=== PATIENT | female | born 1955 | race Caucasian/White ===

== ENCOUNTER 2023-12-27 19:32 | Inpatient (IN) | payer OTHER, SELFPAY ==
[2023-12-27 15:59] VITALS: BMI 36.3
[2023-12-27 16:06] VITALS: BP 133/106
[2023-12-27 16:49] LABS: % Basophils 0.6 % (0-2); % Eosinophils 0.1 % (0-6); % Immature Granulocytes 0.7 % (0-0.5); % Lymphocytes 3.6 % (20.5-51.1); % Monocytes 5.9 % (1.7-9.3); % Neutrophils 89.1 % (42.2-75.2); Absolute Basophils 0.1 10^3/uL (0-0.2); Absolute Immature Granulocytes 0.1 10^3/uL (0-0.05); Absolute Lymphocytes 0.7 10^3/uL (1.2-3.4); Absolute Monocytes 1.1 10^3/uL (0.1-0.6); Absolute Neutrophils 16.2 10^3/uL (1.4-6.5); Hemoglobin 14.7 g/dL (12.0-16.0); Mean Corpuscular Hgb 27.3 pg (27.0-31.0); Mean Corpuscular Volume 85.5 fL (81.0-99.0); Mean Platelet Volume 10.3 fL (7.4-10.4); Nucleated Red Blood Cells % 0 %; Platelet Count 252 10^3/uL (130-400); Red Blood Cell Count 5.38 10^6/uL (4.20-5.40); Red Cell Dist. Width 13.3 % (11.5-14.5); White Blood Cell Count 18.2 10^3/uL (4.8-10.8)
[2023-12-27 16:57] LABS: INR 1.16; PT 14.7 Sec (11.4-14.6)
[2023-12-27 17:00] VITALS: BP 132/63
[2023-12-27 17:00] LABS: ALT (SGPT) 15 U/L (0-35); AST (SGOT) 23 U/L (14-36); Albumin 4.2 g/dl (3.5-5.0); Alkaline Phosphatase 91 U/L (38-126); Blood Urea Nitrogen 13 mg/dl (7-17); Calcium 10.2 mg/dl (8.4-10.2); Carbon Dioxide 31 mmol/L (22-30); Chloride 93 mmol/L (98-107); Estimated Creatinine Clearance 81 ml/min; Glucose 185 mg/dl (70-99); Sodium 138 mmol/L (135-145); Total Bilirubin 0.9 mg/dl (0.2-1.3); Total Protein 7.4 g/dl (6.3-8.2); eGFR > 60.00
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
[2023-12-27] MEDS: DILAUDID 0.5 MG IV ×2 (17:53→21:42)
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
[2023-12-27 18:21] LABS: Creatine Phosphokinase 62 U/L (30-135)
--- NOTE | 2023-12-27 19:03 | HPS.HSE ---
Family Physician
-
Family Physician: Filippo Linares
Chief Complaint
-
Fall and left hip pain
History of Present Illness
This is a 68-year-old female with past medical history significant for schizoaffective disorder, hypertension, diabetes, obesity, bipolar disorder who presents to the emergency department after a fall at home.
Patient reported that she was walking into her kitchen and tripped over her socks falling to the floor on the left side. She had difficulty getting up. She denied loss of consciousness. She denied any palpitations lightheadedness or dizziness.
Brought into the emergency department by ambulance. The intact can correct fracture of the left femur. Patient denies any prior hip surgeries. She denies any prior hip fracture. She lives with child and his significant.
In ED she was hemodynamically stable, afebrile and in no acute distress. Placed on oxygen due to initial sat of 91%. WBC 85394. Hgb and plt WNL. Chemistries WNL. Hip xray with the closed intertrochanteric fracture.
Medical History
Past Medical History
Past Medical History: Reports Hypercholesterolemia, NIDDM and Psychiatric (bipolar, schizoaffective disorder)
Past Surgical History: Reports None
Social History
Tobacco: Smoker
Alcohol: None
Drug: None
Personal: Single
Living: With Family
Employment: Disabled
Family History
Family History: Not pertinent
Allergies / Home Medications
Allergies reflects when Allergies were last updated in [employer].
Home Medications with original date entered in [employer]
Allergy/Medication List:
Allergies
Allergy/AdvReac Type Severity Reaction Status Date / Time
amitriptyline Allergy Unknown Verified 12/27/23 16:06
Anticholinergics Allergy Unknown Verified 12/27/23 16:06
*RETIRED-12/29/12
bee venom protein (honey bee) Allergy Swelling Verified 12/27/23 16:06
penicillin G Allergy Unknown Verified 12/27/23 16:06
Penicillins Allergy rash as a Verified 12/27/23 16:06
child
scopolamine Allergy Unknown Verified 12/27/23 16:06
sertraline Allergy Unknown Verified 12/27/23 16:06
Sulfa (Sulfonamide Allergy Unknown Verified 12/27/23 16:06
Antibiotics)
sulfamethoxazole Allergy Unknown Verified 12/27/23 16:06
Tricyclic Antidepressants Allergy ELEVATED BP Verified 12/27/23 16:06
and Tricy
trimethoprim Allergy Unknown Verified 12/27/23 16:06
venom-honey bee Allergy BEE STINGS Verified 12/27/23 16:06
Home Medications
gabapentin 100 mg capsule 200 mg PO DAILY Neurological Condition 09/01/20
rosuvastatin 10 mg tablet 10 mg PO HS High cholesterol 09/01/20
trazodone 100 mg tablet 100 mg PO HS Depression 09/01/20
ziprasidone HCl 60 mg capsule 120 mg PO QPM Mental Health/Anxiety 09/01/20
metoprolol tartrate 25 mg tablet 25 mg PO DAILY Blood pressure 04/30/22
clonazepam 1 mg tablet (Klonopin) 1 mg PO TID@0800,1300,1800 Mental Health/Anxiety 05/04/22
glipizide 5 mg tablet 5 mg PO DAILY Diabetes #30 tabs 05/06/22
metformin 1,000 mg tablet 1,000 mg PO BID@0800,1700 Diabetes #60 tabs 05/06/22
nicotine 21 mg/24 hr daily transdermal patch 1 patch transdermal Q24H Smoking Cessation 04/01/23
magnesium oxide 400 mg PO DAILY Supplement 06/10/23
polyethylene glycol 3350 17 gram oral powder packet (HealthyLax) 17 g PO DAILY #14 ea 06/12/23
venlafaxine 37.5 mg capsule,extended release 24 hr (Effexor XR) 37.5 mg PO DAILY #30 caps 06/12/23
Review of Systems
-
History Source: Patient
Constitutional: Reports No Symptoms
EENT: Reports No Symptoms
Respiratory: Reports No Symptoms
Cardiac: Reports No Symptoms
Abdomen/GI: Reports No Symptoms
: Reports No Symptoms
Musculoskeletal: Reports Joint Pain
Skin: Reports No Symptoms
Neurological: Reports No Symptoms
Endocrine: Reports No Symptoms
Hematologic/Lymphatic: Reports No Symptoms
Psych: Reports No Symptoms
Physical Exam
Vital Signs
Vital Signs
Temp Pulse Resp BP Pulse Ox
98.2 F 111 15 132/63 91
12/27/23 16:06 12/27/23 17:15 12/27/23 16:30 12/27/23 17:00 12/27/23 17:15
Physical Exam
General: Comfortable
HEENT: NormoCephalic, Anicteric, Moist mucous membranes, Atraumatic and PERRLA
Respiratory: Clear
Cardiac: S1/S2 and Regular Rhythm
Breast: Deferred by me
GI: Non Tender and Normal Bowel Sounds
Rectal: Deferred by Provider
Genito-urinary: Deferred by me
Musculoskeletal: No Clubbing, No Cyanosis and No Edema
Skin: Warm and Dry
Neuro: AO x 3
Hematologic/Lymphatic: No Lymphadenopathy
Psych: Calm
Laboratory Results
-
12/27/23 16:21
12/27/23 16:21
Laboratory Results
PT 14.7 Sec (11.4-14.6) H 12/27/23 16:21
INR 1.16 12/27/23 16:21
APTT 31.0 Sec (23.4-35.0) 12/27/23 16:21
Total Bilirubin 0.9 mg/dl (0.2-1.3) 12/27/23 16:21
AST 23 U/L (14-36) 12/27/23 16:21
ALT 15 U/L (0-35) 12/27/23 16:21
Alkaline Phosphatase 91 U/L (38-126) 12/27/23 16:21
Data Reviewed
-
Diagnostic Radiology: Report Reviewed by me
Lab Data: Labs Reviewed by me
Old Records: Reviewed
Impression/Plan
-
IMPRESSION:
PLAN:
1. Left Hip Fracture - Mechanical fall with left hip closed intertrochanteric femur fracture
- admit to med/surg
- immobilize tonight
- pain control, incentive spirometry
- ivf w/ /2 ns
- orthopedic consulted and notified
- npo after midnight
- pt eval
- type and screen and coags in am
2. DM II -
- hold glipizide as pt npo in am
- continue metformin 1000
- sliding scale insulin for now
3. HTN/HLD -
- continue metoprolol
- continue statin
4. BIPOLAR - stable
- continue psychotropics
DVT PPX with lovenos xq
Full Code
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
[2023-12-27 19:28] VITALS: BP 152/78
[2023-12-27 19:45] LABS: Urine Albumin Trace (Neg - Trace); Urine Bilirubin 1+ (Negative); Urine Character Clear (Clear); Urine Color Amber; Urine Glucose Trace (Negative); Urine Ketone 3+ (Negative); Urine Leukocyte Negative (Negative); Urine Nitrite Negative (Negative); Urine Occult Blood Trace (Negative); Urine Specific Gravity 1.025 (<1.030); Urine Urobilinogen 1+ (Neg - 1+)
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
[2023-12-27 20:02] LABS: Creatine Phosphokinase 84 U/L (30-135)
[2023-12-27 20:04] LABS: Urine Mucus Moderate
[2023-12-27 20:05] LABS: Urine White Cell Cast 0-2 /LPF
[2023-12-27 20:06] LABS: Urine Bacteria Few (Negative); Urine Red Blood Cell 0-2 /HPF (0-2)
[2023-12-27 20:11] LABS: COVID-19 Antigen Negative (Negative)
[2023-12-27 20:36] VITALS: BP 149/91; BMI 35.1
[2023-12-27] MEDS: SENOKOT 17.1999999999999993 MG PO (21:00)
[2023-12-27] MEDS: TYLENOL 650 MG PO (21:00)
[2023-12-27] MEDS: COLACE 100 MG PO (21:00)
[2023-12-27] MEDS: CRESTOR 10 MG PO (21:41)
[2023-12-27] MEDS: DESYREL 100 MG PO (21:41)
[2023-12-27 23:00] VITALS: BP 109/67
[2023-12-27] MEDS: LOPRESSOR 25 MG PO (23:21)
[2023-12-27] MEDS: HEPARIN 5000 UNITS SC (23:24)
[2023-12-27 23:33] LABS: Glucose - Point of Care 200 mg/dl (70-99)
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
[2023-12-28] VITALS (11 sets, daily range): BP systolic 83–119; BP diastolic 48–75
[2023-12-28] MEDS: TYLENOL PO ×3 (01:00→16:27)
[2023-12-28] MEDS: NOVOLOG FLEXPEN-LOW RESISTANCE 2 UNITS SC (01:00)
[2023-12-28] MEDS: TYLENOL 650 MG PO ×3 (04:37→19:37)
[2023-12-28] MEDS: NOVOLOG FLEXPEN-LOW RESISTANCE 1 UNITS SC (05:25)
[2023-12-28 05:26] LABS: Glucose - Point of Care 150 mg/dl (70-99)
[2023-12-28] MEDS: NSS 1000 IV ×2 (06:15→17:11)
--- NOTE | 2023-12-28 08:52 | W.PN.UPDATE ---
Update Note
Progress Note Update
Patient resting comfortably. DND. Patient for open treatment of LEFT hip fracture a bit later today via Dr. Lacey or Dr. Low. Surgical and blood consents have been signed and are at the OR desk. Patient to remain NPO. Hgb at 14.7. T&S has been
requested. IV ABX garbage person.
[2023-12-28] MEDS: HEPARIN 5000 UNITS SC (09:20)
[2023-12-28] MEDS: LOPRESSOR 25 MG PO (09:21)
[2023-12-28] MEDS: SENOKOT 17.1999999999999993 MG PO ×2 (09:21→19:36)
[2023-12-28] MEDS: NEURONTIN 200 MG PO (09:21)
[2023-12-28] MEDS: COLACE 100 MG PO ×2 (09:21→19:37)
[2023-12-28] MEDS: EFFEXOR XR PO ×2 (09:22→09:29)
[2023-12-28] MEDS: KLONOPIN 0.5 MG PO ×2 (09:22→18:41)
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
[2023-12-28] MEDS: DILAUDID 0.5 MG IV ×2 (10:46→19:47)
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
[2023-12-28 12:24] LABS: Glucose - Point of Care 124 mg/dl (70-99)
[2023-12-28] MEDS: NOVOLOG FLEXPEN-LOW RESISTANCE SC ×2 (12:29→19:15)
[2023-12-28] MEDS: KLONOPIN PO (12:30)
[2023-12-28] MEDS: NICODERM TRANSDERMAL TRANSDERM (12:30)
[2023-12-28] MEDS: HEPARIN SC (16:27)
[2023-12-28 16:54] LABS: Glucose - Point of Care 109 mg/dl (70-99)
[2023-12-28] MEDS: ASPIRIN 325 MG PO (18:40)
[2023-12-28] MEDS: GEODON 120 MG PO (18:41)
[2023-12-28] MEDS: ANCEF 5 IV (19:37)
[2023-12-28 21:32] LABS: Glucose - Point of Care 262 mg/dl (70-99)
[2023-12-28] MEDS: DESYREL 100 MG PO (21:37)
[2023-12-28] MEDS: NOVOLOG FLEXPEN-LOW RESISTANCE 3 UNITS SC (21:38)
[2023-12-28] MEDS: CRESTOR 10 MG PO (21:38)
[2023-12-29] VITALS (7 sets, daily range): BP systolic 95–125; BP diastolic 51–69; PULSE 75; O2SAT 97
[2023-12-29] MEDS: HEPARIN 5000 UNITS SC ×4 (00:05→23:07)
[2023-12-29] MEDS: TYLENOL PO ×3 (00:06→05:00)
[2023-12-29] MEDS: NSS IV ×2 (01:56→05:38)
[2023-12-29] MEDS: ANCEF 5 IV (03:10)
[2023-12-29 05:04] LABS: Glucose - Point of Care 220 mg/dl (70-99)
[2023-12-29] MEDS: NOVOLOG FLEXPEN-LOW RESISTANCE 2 UNITS SC ×2 (05:23→23:04)
[2023-12-29 05:29] LABS: Hematocrit 33.6 % (37.0-47.0)
--- NOTE | 2023-12-29 07:39 | W.PN.ORTHO ---
Today's Communication / Plan
-
68-year-old female status post left intertrochanteric femur fracture cephalomedullary nail fixation with Dr. Low postoperative day 1
-Weightbearing as tolerated to left lower extremity with assist devices as indicated
-PT/OT/DC planning
-Pain controlled on current regimen
-ASA 325 mg x 30 days for DVT prophylaxis unless recommended otherwise per primary
-Diet per primary
-Orthopedic surgery will continue to follow
Assessment
.
Distal Motor Intact: Yes
Dressing:
Clean, dry and intact.
Plan
.
Surgery / Date: 12/28/2023
DVT Prophylaxis: Aspirin
Activity:
Out of bed.
PT/OT
Subjective
.
.:
Patient resting comfortably.
Vital Signs and Labs
.
Vital Signs and Labs:
Lab Results
12/29/23 04:53
12/27/23 16:21
Temp Pulse Resp BP Pulse Ox
97.8 F 74 18 108/53 97
12/29/23 07:00 12/29/23 07:00 12/29/23 07:00 12/29/23 07:00 12/29/23 07:00
PT 14.7 Sec (11.4-14.6) H 12/27/23 16:21
INR 1.16 12/27/23 16:21
Physical Exam
-
Examination the left lower extremity shows dressings are intact without any surrounding erythema. Minimal strikethrough the bandage. Neurovascularly intact L3-S1
[2023-12-29] MEDS: SENOKOT 17.1999999999999993 MG PO ×2 (08:52→20:43)
[2023-12-29] MEDS: NEURONTIN 200 MG PO (08:52)
[2023-12-29] MEDS: COLACE 100 MG PO ×2 (08:57→20:43)
[2023-12-29] MEDS: ASPIRIN 325 MG PO (08:57)
[2023-12-29] MEDS: KLONOPIN 0.5 MG PO ×3 (08:57→17:14)
[2023-12-29] MEDS: TYLENOL 650 MG PO ×5 (08:57→23:04)
[2023-12-29] MEDS: LOPRESSOR 25 MG PO (08:57)
[2023-12-29] MEDS: EFFEXOR XR PO (08:58)
[2023-12-29] MEDS: NICODERM TRANSDERMAL 21 MG TRANSDERM (08:58)
[2023-12-29] MEDS: ROXICODONE 5 MG PO ×3 (09:01→23:49)
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
--- NOTE | 2023-12-29 11:32 | PN.CDI ---
Addendum entered and electronically signed by Derek Dixon MD 12/29/23 11:50:
Multifactorial, due to fall and osteoporosis
Original Note:
CDI
- -
CDI:
Physician Documentation Request
Admit Date: 12/27/23 19:32
Dear Doctor Zack,
Clinical Indicators:
Patient admitted with fracture of left femur; s/p Left hip long gamma nail with distal interlocking 12/27.
12/26 H & P, 'Fall in Kitchen at home Tripped on the sock and fell on her Lt hip'
12/26 Ortho consult, 'Left Proximal femur fracture, pathologic secondary to osteoporosis.'
12/26 PN, 'Acute closed intertrochanteric fracture of left femur: S/P mechanical fall'
Due to potentially conflicting documentation, please clarify the likely etiology of the left femur fracture:
Multifactorial, due to fall and osteoporosis
Due to fall only
Other
Use of terms such as suspected, likely, concern for, or probable (associated with a specific diagnosis that is being evaluated, monitored, or treated as if it exists) are acceptable and can be coded in the inpatient setting, when documented at the
time of discharge.
Thank you,
YE Ramos RN
CDI Specialist
available via tiger text
Please use your independent medical judgment in providing your response.
[2023-12-29 13:17] LABS: Glucose - Point of Care 160 mg/dl (70-99)
[2023-12-29] MEDS: NOVOLOG FLEXPEN-LOW RESISTANCE 1 UNITS SC ×2 (14:13→17:18)
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
[2023-12-29 17:09] LABS: Glucose - Point of Care 182 mg/dl (70-99)
[2023-12-29] MEDS: GEODON 120 MG PO (17:14)
[2023-12-29] MEDS: CRESTOR 10 MG PO (21:02)
[2023-12-29] MEDS: DESYREL 100 MG PO (21:02)
[2023-12-29 23:01] LABS: Glucose - Point of Care 211 mg/dl (70-99)
[2023-12-30] VITALS (7 sets, daily range): BP systolic 86–123; BP diastolic 54–71; PULSE 76; O2SAT 95
[2023-12-30] MEDS: TYLENOL 650 MG PO ×5 (04:10→23:57)
--- NOTE | 2023-12-30 05:23 | DOWNTIME ---
There was a [employer] Client Detail Manager Downtime on 12/30/2023 from 0100 to 12/30/2023 at 0439. Downtime documentation of patient's care, including medication administrations, has been reconciled in the electronic record per guidelines. Refer to the
patient's paper chart under the miscellaneous tab to see printed paper medication records and downtime forms.
[2023-12-30 05:40] LABS: Hematocrit 28.6 % (37.0-47.0); Hemoglobin 9.4 g/dL (12.0-16.0); Mean Corp Hgb Conc. 32.9 g/dL (33.0-37.0); Mean Corpuscular Hgb 27.4 pg (27.0-31.0); Mean Corpuscular Volume 83.4 fL (81.0-99.0); Mean Platelet Volume 10.3 fL (7.4-10.4); Platelet Count 233 10^3/uL (130-400); Red Blood Cell Count 3.43 10^6/uL (4.20-5.40); White Blood Cell Count 9.6 10^3/uL (4.8-10.8)
[2023-12-30 06:08] LABS: Blood Urea Nitrogen 13 mg/dl (7-17); Calcium 8.9 mg/dl (8.4-10.2); Carbon Dioxide 37 mmol/L (22-30); Chloride 97 mmol/L (98-107); Estimated Creatinine Clearance 90 ml/min; Glucose 98 mg/dl (70-99); Potassium 3.1 mmol/L (3.5-5.1); Sodium 135 mmol/L (135-145); eGFR > 60.00
--- NOTE | 2023-12-30 07:34 | W.PN.UPDATE ---
Update Note
Progress Note Update
Ms. Carlson is postop day 2 following her left cephalomedullary nail performed by Dr. Low. She is resting comfortably in bed this morning. She does endorse aching pain about the hip, but has noticed improvement in her symptoms overnight.
Directed exam of the left lower extremity reveals Aquacel dressings clean, dry and intact. No significant tenderness palpation of the hip. Thigh soft and compressible. Calf soft and nontender. Patient able to wiggle toes, plantar and dorsiflex
ankle. Neurovascular intact distally.
Hgb 9.4 this a.m.
68-year-old female POD2 left intertrochanteric femur fracture cephalomedullary nail fixation with Dr. Low
-- Continue weightbearing as tolerated to left lower extremity with assist devices as indicated. We appreciate the assistance of PT/OT while patient admitted.
--Recommend ASA 325 mg daily x4 weeks for DVT ppx.
--Continue pain control per primary.
--Hgb 9.4 this AM. Continue to follow.
--Case management consult for d/c planning. SNF will likely be best option for patient.
--Patient stable post-operatively from an orthopedic standpoint. Orthopedics will sign off for now. Please reach out with any additional orthopedic questions or concerns.
[2023-12-30 08:23] LABS: Glucose - Point of Care 103 mg/dl (70-99)
[2023-12-30] MEDS: HEPARIN SC (08:33)
[2023-12-30] MEDS: NOVOLOG FLEXPEN-LOW RESISTANCE SC ×3 (08:34→17:19)
[2023-12-30] MEDS: COLACE 100 MG PO ×2 (09:08→19:44)
[2023-12-30] MEDS: NICODERM TRANSDERMAL 21 MG TRANSDERM (09:08)
[2023-12-30] MEDS: SENOKOT 17.1999999999999993 MG PO (09:08)
[2023-12-30] MEDS: LOPRESSOR 25 MG PO (09:09)
[2023-12-30] MEDS: EFFEXOR XR 37.5 MG PO (09:09)
[2023-12-30] MEDS: KLONOPIN 0.5 MG PO ×3 (09:09→17:19)
[2023-12-30] MEDS: NEURONTIN 200 MG PO (09:10)
[2023-12-30] MEDS: ASPIRIN 325 MG PO (09:10)
[2023-12-30] MEDS: MILK OF MAGNESIA 30 ML PO (09:26)
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
[2023-12-30] MEDS: KCL 40 MEQ PO (11:41)
[2023-12-30] MEDS: ROXICODONE 10 MG PO ×2 (11:41→18:41)
[2023-12-30 12:47] LABS: Glucose - Point of Care 133 mg/dl (70-99)
[2023-12-30] MEDS: TYLENOL PO (12:47)
--- NOTE | 2023-12-30 15:06 | CM ---
Addendum entered by Daphnie Young 12/31/23 07:46:
patient has been accepted at [facility].however, timmy called to say no bed available 12/30 but [facility] accepted bed at [facility] npi [phone].dr alvarado npi [phone].patient will
need auth from [employer].
Original Note:
received a call from paradise at [facility] who stated they could take patient.however patient needs an auth from [employer] before going to facility.i told paradise it does look like patient will probably be at facility group home.paradise recalled to tell me she
was not able to reach daughter . i told paradise at [facility] that i would contact hellen to see if she has a different number.hellen told me she will come to eval patient along with [facility] to eval patient.hellen told cm pt has a dx of schizoaffective disorder
and borderline personality disorder.hellen spoke with paradise at [facility].paradise called back and told me she is not going to take patient if she needs group home care.she has too much going on .hellen called back and told me she and sneha forman
callister from [facility] [phone] spoke with the patient and told her she will be a [facility] facility group home.also hellen said APS will be trying to obtain emergency guardianship but patient can be dc first.Plan patient will dc to short term to group home
care.
[2023-12-30 16:43] LABS: Glucose - Point of Care 127 mg/dl (70-99)
[2023-12-30] MEDS: GEODON 120 MG PO (17:19)
[2023-12-30] MEDS: SENOKOT 8.59999999999999964 MG PO (19:42)
[2023-12-30] MEDS: CRESTOR 10 MG PO (21:01)
[2023-12-30] MEDS: DESYREL 100 MG PO (21:01)
[2023-12-30 21:36] LABS: Glucose - Point of Care 183 mg/dl (70-99)
[2023-12-31] MEDS: TYLENOL 650 MG PO ×5 (03:41→21:35)
[2023-12-31] MEDS: MILK OF MAGNESIA 30 ML PO (04:16)
[2023-12-31] MEDS: ROXICODONE 5 MG PO ×2 (05:17→13:46)
[2023-12-31 05:29] LABS: Hematocrit 28.5 % (37.0-47.0); Hemoglobin 9.4 g/dL (12.0-16.0); Mean Corpuscular Hgb 27.2 pg (27.0-31.0); Mean Corpuscular Volume 82.4 fL (81.0-99.0); Platelet Count 237 10^3/uL (130-400); Red Blood Cell Count 3.46 10^6/uL (4.20-5.40); Red Cell Dist. Width 13.2 % (11.5-14.5)
[2023-12-31 05:58] LABS: Blood Urea Nitrogen 12 mg/dl (7-17); Calcium 9.3 mg/dl (8.4-10.2); Carbon Dioxide 35 mmol/L (22-30); Chloride 92 mmol/L (98-107); Estimated Creatinine Clearance 105 ml/min; Glucose 110 mg/dl (70-99); Potassium 3.3 mmol/L (3.5-5.1); Sodium 135 mmol/L (135-145); eGFR > 60.00
[2023-12-31 07:09] VITALS: BP 143/83
[2023-12-31 08:03] LABS: Glucose - Point of Care 160 mg/dl (70-99)
[2023-12-31] MEDS: NICODERM TRANSDERMAL 21 MG TRANSDERM (09:18)
[2023-12-31] MEDS: SENOKOT 17.1999999999999993 MG PO (09:19)
[2023-12-31] MEDS: GLUCOTROL 5 MG PO (09:20)
[2023-12-31] MEDS: EFFEXOR XR 37.5 MG PO (09:21)
[2023-12-31] MEDS: NEURONTIN 200 MG PO (09:21)
[2023-12-31] MEDS: ASPIRIN 325 MG PO (09:21)
[2023-12-31] MEDS: KLONOPIN 0.5 MG PO ×3 (09:22→17:45)
[2023-12-31] MEDS: LOPRESSOR 25 MG PO (09:23)
[2023-12-31] MEDS: NOVOLOG FLEXPEN-LOW RESISTANCE 1 UNITS SC (09:25)
[2023-12-31] MEDS: COLACE 100 MG PO (09:42)
--- NOTE | 2023-12-31 09:51 | CM ---
Addendum entered by Debora Coffey 12/31/23 14:40:
MAHESH spoke with [facility] worker Therese Berg, per Therese, [facility] will be filing for guardianship. Therese requesting psych evaluation, TT sent to Hospitalist and Psychiatrist. MAHESH spoke with Gisselle, liaison from [facility], looking into if [facility] can accept patient for SNF and possible transition to LTC, facility may want to see patients financial.
Original Note:
MAHESH spoke with Earline from [facility] [phone] regarding patient. Per Earline, patient receives outpatient mental health care at her home or in the community, intensive care, has a supportive employment case manager, nurse, psychiatrist, and medications. Earline
reports patient has not had any recent suicide attempts or hospital stays and does not feel patient is a level 2. Earline reports she met with patient yesterday with [facility] worker Therese Berg, pursuing guardianship, but are agreeable
for patient to discharge to a SNF. Earline reports patient could be a transition to LTC however, if patients son and daughter in law left the patients home, patient could absolutely return home and only need short term rehab. Earline reports
patients daughter is managing her financial, and if needed, Earline or the [facility] can assist with getting financial if needed by SNFS. MAHESH spoke with Gisselle from [facility], unable to accept, [facility].
MAHESH will continue to follow for discharge planning needs.
Plan; SNF, needs auth and accepting facility.
[2023-12-31 12:00] LABS: Glucose - Point of Care 135 mg/dl (70-99)
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
[2023-12-31] MEDS: NOVOLOG FLEXPEN-LOW RESISTANCE SC ×2 (13:38→17:18)
[2023-12-31 15:00] VITALS: BP 124/62
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
[2023-12-31 17:01] LABS: Glucose - Point of Care 100 mg/dl (70-99)
[2023-12-31] MEDS: GEODON 120 MG PO (17:45)
[2023-12-31 21:28] LABS: Glucose - Point of Care 160 mg/dl (70-99)
[2023-12-31] MEDS: COLACE PO (21:32)
[2023-12-31] MEDS: SENOKOT PO (21:32)
[2023-12-31] MEDS: CRESTOR 10 MG PO (21:35)
[2023-12-31] MEDS: DESYREL 100 MG PO (21:35)
[2023-12-31 23:10] VITALS: BP 120/68
[2024-01-01] MEDS: TYLENOL PO (01:24)
[2024-01-01] MEDS: TYLENOL 650 MG PO ×3 (04:21→12:03)
[2024-01-01] MEDS: ROXICODONE 5 MG PO (06:37)
[2024-01-01 07:27] LABS: Glucose - Point of Care 164 mg/dl (70-99)
[2024-01-01 07:48] VITALS: BP 120/70
[2024-01-01] MEDS: NOVOLOG FLEXPEN-LOW RESISTANCE 1 UNITS SC ×2 (08:12→12:03)
[2024-01-01] MEDS: NICODERM TRANSDERMAL 21 MG TRANSDERM (08:12)
[2024-01-01] MEDS: NEURONTIN 200 MG PO (08:13)
[2024-01-01] MEDS: LOPRESSOR 25 MG PO (08:13)
[2024-01-01] MEDS: COLACE PO (08:13)
[2024-01-01] MEDS: EFFEXOR XR 37.5 MG PO (08:13)
[2024-01-01] MEDS: ASPIRIN 325 MG PO (08:13)
[2024-01-01] MEDS: KLONOPIN 0.5 MG PO ×2 (08:13→12:03)
[2024-01-01] MEDS: GLUCOTROL 5 MG PO (08:13)
[2024-01-01] MEDS: SENOKOT PO (08:14)
--- NOTE | 2024-01-01 09:16 | CM ---
Addendum entered by Kun Tapia 01/01/24 10:39:
[facility] nursing report: [phone]
Discharge instructions fax: [phone].
Original Note:
CM following re:discharge planning.
Reviewed pt's chart, met with pt and spoke to pt's daughter Rachel over the phone to update on discharge plan progress.
According to pt is medically stable to be discharged today. Both pt and her daughter Rachel are aware, expressed their agreement with discharge. IMM reviewed, placed in chart, pt has a copy.
CM spoke [facility] liaison and she confirmed that pt is accepted for admission today.
Apparently, an auth was initiated for [facility] and pt does not want to go there and CM switched an auth to [facility] by calling TONEY Barrera [phone].Pt is approved foor skilled level II at [facility] from 12/31/23 till
01/12/24, with NRD 01/13/24. Auth: [id number]. Reviewer: Elzbieta Jimenez [phone].
to arrange transportation. [facility] and [facility] with .
D/C plan: [facility].
--- NOTE | 2024-01-01 10:08 | W.DCSUMMARY ---
Discharge Summary
Discharge Data
Date of Admission: 12/27/23
Date of Discharge: 01/01/24
-
Pending Results: No
Hospital Course
68 years old female who was found on floor and brought into the emergency room. Creatinine kinase level was normal. Imaging studies showed acute closed intertrochanteric fracture of the left femur. Patient was evaluated by orthopedic doctor.
She did not have head trauma. She underwent open reduction and internal fixation by Dr. Low on December 28, 2023. No complications reported. She was placed on aspirin 325 mg for clot prevention. Patient had history of smoking. She was not
following pulmonary doctor. She was noted to have elevated carbon dioxide level in the blood. Possibility of underlying sleep apnea. Patient had obesity also. Patient was counseled to lose weight, quit smoking and given incentive spirometer.
She was kept on low oxygen at 2 L. She had low potassium and she was given potassium replacement therapy. She was diagnosed with acute blood loss anemia after fracture. Hemoglobin upon discharge around 9.4. Patient had history of schizoaffective
disorder. She was evaluated by psychiatrist. No changes recommended to her medications. Klonopin dose was reduced in the hospital and patient tolerated that well. Psychiatrist recommended the area office on aging to pursue guardianship to help
the patient manage her financial and health issues. Patient did not have agitation or confusion in the hospital. She remained at her baseline. She remained hemodynamically stable. She was a pleasant and cooperative. Patient was discharged to
halfway facility in a stable condition.
Physical Exam
General: Well Nourished, No Apparent Distress and Obese
HEENT: Normocephalic, Atraumatic and PERRLA
Respiratory: limited, Clear; no audible wheezes.
Cardiac: S1/S2, Regular Rhythm and Tachycardia; No Murmur
GI: Soft, Non Tender, Non Distended and Normal Bowel Sounds
Rectal: No rectal bleeding
Genito-urinary: no Cruz
Musculoskeletal: Other (Lt thigh surgery site is clean).
Skin: Warm and Dry
Neuro: AO x 3. Follows commands.
Psych: Calm; No Agitated
Total discharge time spent to see patient, examine the patient on the floor, review data and lab results, discuss discharge plan with patient, nursing staff around 65 minutes
Discharge Plan
-
Patient Disposition: Halfway/SNF
Discharge Diagnosis/Procedures: Left hip cephalomedullary nail under the direction of Dr. Low (DOS 12/28/2023). Aspirin 325 mg for 4 weeks postdischarge
Acute blood loss anemia
Hypokalemia
Schizoaffective disorder
Obesity
Hypoxia
Tobacco use
Benzodiazepine dependency
Diet: Regular
Activity: With Walker
Driving Restrictions: Not until seen by your Dr
Bathing Restrictions: OK to Shower
Blood Work: BMP in 3 days
Referrals:
Filippo Linares MD [Family Provider] - in one to two weeks
Howie Lacey MD [Active] - in one month
Eufemia Gonsales DO [Active] - in two to three weeks (Call to make appointment to rule out sleep apnea, COPD)
Prescriptions:
New
sennosides [Senna Laxative] 8.6 mg Tablet
17.2 mg PO HS Qty: 10 0RF
acetaminophen 325 mg Tablet
650 mg PO Q6HPRN PRN (Reason: mild to moderate pain) Qty: 10 0RF
aspirin 325 mg Tablet
325 mg PO DAILY Qty: 28 0RF
clonazepam 0.5 mg Tablet
0.5 mg PO TID@0800,1300,1800 Qty: 20 0RF
oxycodone 5 mg Tablet
5 mg PO Q6HPRN PRN (Reason: severe pain) Qty: 10 0RF
Continued
trazodone 100 MG tablet
100 mg PO HS
gabapentin 100 MG capsule
200 mg PO DAILY
ziprasidone HCl 60 MG capsule
120 mg PO QPM
rosuvastatin 10 MG tablet
10 mg PO HS
metoprolol tartrate 25 mg Tablet
25 mg PO DAILY
metformin 1,000 mg Tablet
1,000 mg PO BID@0800,1700 Qty: 60 0RF
glipizide 5 mg Tablet
5 mg PO DAILY Qty: 30 0RF
Rx Instructions:
Take 30 mins before breakfast
nicotine 21 mg/24 hr Patch 24 Hour
1 patch TRANSDERMAL Q24H
magnesium oxide 400 mg magnesium Tablet
400 mg PO DAILY
venlafaxine [Effexor XR] 37.5 mg Capsule,Extended Release 24hr
37.5 mg PO DAILY Qty: 30 0RF
polyethylene glycol 3350 [HealthyLax] 17 gram Powder In Packet
17 g PO DAILY Qty: 14 0RF
Discontinued
clonazepam [Klonopin] 1 mg Tablet
0.5 mg PO 2XD
Patient Comments:
06/10/2023: last filled 06/09/23, 84 tabs for 28 days from [facility]
Discharge Orders:
Discharge Patient (As Directed); Ordered 01/01/24
Ordered By: Derek Dixon
Discharge Date and Time
Print Language: YORUBA
[2024-01-01 11:24] VITALS: BP 116/61
[2024-01-01 11:33] LABS: Glucose - Point of Care 151 mg/dl (70-99)
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
== END 2024-01-01 13:44 | DRG 481 ==
LOC: 2 SOUTH 19:32
PROVIDERS: Internal Medicine; Physician Assistant Surgical; Specialist; ADMITTING PHYSICIAN Internal Medicine; ATTENDING PHYSICIAN Internal Medicine; CONSULT PHYSICIAN Psychiatry & Neurology Psychiatry; CONSULT PHYSICIAN Specialist; EMERGENCY PHYSICIAN Student in an Organized Health Care Education/Training Program; FAMILY PHYSICIAN Family Medicine
PROC: 0QS706Z Reposition Left Upper Femur with Intramedullary Internal Fixation Device, Open Approach (ICD-10-PCS; 2023-12-28)
DX: M80.052A Age-related osteoporosis with current pathological fracture, left femur, initial encounter for fracture (principal); D62 Acute posthemorrhagic anemia; E66.2 Morbid (severe) obesity with alveolar hypoventilation; F17.200 Nicotine dependence, unspecified, uncomplicated; W01.0XXA Fall on same level from slipping, tripping and stumbling without subsequent striking against object, initial encounter; E66.9 Obesity, unspecified; I25.10 Atherosclerotic heart disease of native coronary artery without angina pectoris; Z95.5 Presence of coronary angioplasty implant and graft; E11.65 Type 2 diabetes mellitus with hyperglycemia; E78.00 Pure hypercholesterolemia, unspecified; F32.A Depression, unspecified; F41.9 Anxiety disorder, unspecified; E87.6 Hypokalemia; Z68.35 Body mass index [BMI] 35.0-35.9, adult; Z75.1 Person awaiting admission to adequate facility elsewhere; Z11.52 Encounter for screening for COVID-19
CPT/HCPCS: 71045; 73502; 76000; 80048; 80053; 81003; 81015; 82550; 82962; 85014; 85018; 85025; 85027; 85610; 85730; 86850; 86900; 86901; 87811; 93005; 96374; 97116; 97163; 97167; 97530; 97535; 99285; 99406; C1713; C1769

== ENCOUNTER 2024-03-17 23:04 | Emergency (ER) | payer OTHER, SELFPAY ==
[2024-03-17 23:17] VITALS: BP 133/76
[2024-03-17 23:26] LABS: % Basophils 0.6 % (0-2); % Eosinophils 1.5 % (0-6); % Immature Granulocytes 0.3 % (0-0.5); % Lymphocytes 24.9 % (20.5-51.1); % Monocytes 6.6 % (1.7-9.3); % Neutrophils 66.1 % (42.2-75.2); Absolute Basophils 0.1 10^3/uL (0-0.2); Absolute Eosinophils 0.2 10^3/uL (0-0.7); Absolute Lymphocytes 2.9 10^3/uL (1.2-3.4); Absolute Monocytes 0.8 10^3/uL (0.1-0.6); Absolute Neutrophils 7.6 10^3/uL (1.4-6.5); Hematocrit 39.2 % (37.0-47.0); Hemoglobin 13.5 g/dL (12.0-16.0); Mean Corp Hgb Conc. 34.4 g/dL (33.0-37.0); Mean Corpuscular Hgb 27.5 pg (27.0-31.0); Mean Corpuscular Volume 79.8 fL (81.0-99.0); Mean Platelet Volume 9.8 fL (7.4-10.4); Nucleated Red Blood Cells % 0 %; Platelet Count 254 10^3/uL (130-400); Red Blood Cell Count 4.91 10^6/uL (4.20-5.40); Red Cell Dist. Width 15.4 % (11.5-14.5); White Blood Cell Count 11.4 10^3/uL (4.8-10.8)
[2024-03-17 23:50] LABS: Urine Albumin Negative (Neg - Trace); Urine Bilirubin Negative (Negative); Urine Character Clear (Clear); Urine Color Yellow; Urine Glucose Negative (Negative); Urine Ketone Trace (Negative); Urine Leukocyte Trace (Negative); Urine Nitrite Negative (Negative); Urine Occult Blood 3+ (Negative); Urine Specific Gravity 1.005 (<1.030); Urine Urobilinogen Negative (Neg - 1+)
[2024-03-17 23:51] LABS: ALT (SGPT) 11 U/L (0-35); AST (SGOT) 19 U/L (14-36); Albumin 4.1 g/dl (3.5-5.0); Alkaline Phosphatase 98 U/L (38-126); Blood Urea Nitrogen 10 mg/dl (7-17); Calcium 9.9 mg/dl (8.4-10.2); Carbon Dioxide 23 mmol/L (22-30); Chloride 102 mmol/L (98-107); Glucose 85 mg/dl (70-99); Potassium 3.7 mmol/L (3.5-5.1); Sodium 137 mmol/L (135-145); Total Bilirubin 0.7 mg/dl (0.2-1.3); Total Protein 6.6 g/dl (6.3-8.2); eGFR > 60.00
[2024-03-18] VITALS: BP 115/76
[2024-03-18 00:01] LABS: Urine Bacteria Few (Negative)
[2024-03-18 00:05] LABS: Amphetamines Negative (Negative); Barbiturates Negative (Negative); Benzodiazepines Negative (Negative); Buprenorphine Negative (Negative); Cocaine Negative (Negative); Marijuana Negative (Negative); Methadone Negative (Negative); Methamphetamines Negative (Negative); Opiates Negative (Negative); Phencyclidine Negative (Negative); Tricyclic Antidepressants Negative (Negative)
[2024-03-18 01:00] VITALS: BP 116/88
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
[2024-03-18 02:00] VITALS: BP 125/76
== END 2024-03-18 03:45 | disposition home or self-care (01) ==
LOC: EMR 23:04
PROVIDERS: EMERGENCY PHYSICIAN Emergency Medicine; FAMILY PHYSICIAN Family Medicine
DX: R45.851 Suicidal ideations (principal); F32.A Depression, unspecified; F41.9 Anxiety disorder, unspecified; Z87.891 Personal history of nicotine dependence
CPT/HCPCS: 99283; 80053; 80306; 81003; 81015; 85025

== ENCOUNTER 2024-03-28 12:09 | Inpatient (IN) | payer MEDICARE, OTHER, SELFPAY ==
[2024-03-21 11:24] VITALS: BP 141/82
--- NOTE | 2024-03-21 11:36 | CM ---
CM reviewed medical records. CM will follow as needed.
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
[2024-03-21 12:06] LABS: Urine Albumin Negative (Neg - Trace); Urine Bilirubin Negative (Negative); Urine Character Clear (Clear); Urine Color Yellow; Urine Glucose Negative (Negative); Urine Ketone 3+ (Negative); Urine Leukocyte Negative (Negative); Urine Nitrite Negative (Negative); Urine Occult Blood Negative (Negative); Urine Specific Gravity 1.015 (<1.030); Urine Urobilinogen Negative (Neg - 1+)
[2024-03-21 12:14] LABS: % Basophils 0.3 % (0-2); % Eosinophils 0.1 % (0-6); % Immature Granulocytes 0.4 % (0-0.5); % Monocytes 7.2 % (1.7-9.3); ALT (SGPT) 11 U/L (0-35); AST (SGOT) 24 U/L (14-36); Absolute Basophils 0.1 10^3/uL (0-0.2); Absolute Immature Granulocytes 0.1 10^3/uL (0-0.05); Absolute Lymphocytes 1.4 10^3/uL (1.2-3.4); Absolute Monocytes 1.1 10^3/uL (0.1-0.6); Absolute Neutrophils 12.5 10^3/uL (1.4-6.5); Albumin 4.4 g/dl (3.5-5.0); Alkaline Phosphatase 99 U/L (38-126); Blood Urea Nitrogen 5 mg/dl (7-17); Calcium 9.6 mg/dl (8.4-10.2); Carbon Dioxide 25 mmol/L (22-30); Chloride 91 mmol/L (98-107); Glucose 140 mg/dl (70-99); Hematocrit 39.9 % (37.0-47.0); Hemoglobin 13.8 g/dL (12.0-16.0); Lipase 43 U/L (23-300); Mean Corp Hgb Conc. 34.6 g/dL (33.0-37.0); Mean Corpuscular Hgb 26.8 pg (27.0-31.0); Mean Corpuscular Volume 77.6 fL (81.0-99.0); Nucleated Red Blood Cells % 0 %; Platelet Count 311 10^3/uL (130-400); Potassium 3.2 mmol/L (3.5-5.1); Red Blood Cell Count 5.14 10^6/uL (4.20-5.40); Red Cell Dist. Width 14.8 % (11.5-14.5); Sodium 128 mmol/L (135-145); Total Bilirubin 1.2 mg/dl (0.2-1.3); White Blood Cell Count 15.1 10^3/uL (4.8-10.8); eGFR > 60.00
[2024-03-21 12:25] LABS: Amphetamines Positive (Negative); Marijuana Positive (Negative); Methamphetamines Positive (Negative)
[2024-03-21 12:26] LABS: Barbiturates Negative (Negative); Benzodiazepines Negative (Negative); Buprenorphine Negative (Negative); Cocaine Negative (Negative); Methadone Negative (Negative); Opiates Negative (Negative); Phencyclidine Negative (Negative); Tricyclic Antidepressants Negative (Negative)
[2024-03-21 12:40] LABS: Acetaminophen < 10 ug/ml (10-30); Salicylate < 1.0 mg/dl (2.0-20.0)
[2024-03-21 12:50] LABS: Fentanyl, Urine Positive (Negative)
[2024-03-21] MEDS: KCL 260 MEQ IV (13:05)
[2024-03-21] MEDS: NSS 1000 IV (13:07)
--- NOTE | 2024-03-21 14:08 | CM ---
Addendum entered by Therese Zimmer RN 03/21/24 14:22:
MAHESH sent referrals to the following SNF's should [facility] not be able to accept:
[facility]
Original Note:
MAHESH spoke with Gisselle Jha. [facility] is willing to consider having patient come to their facility as long as there is an emergency placement order and guardianship.
Discharge Disposition:
Emergency placement at SNF.
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
[2024-03-21 15:00] VITALS: BP 145/96
--- NOTE | 2024-03-21 15:10 | W.PN.UPDATE ---
Update Note
Progress Note Update
Pt seen, Psychiatry asked to assess after 302 petition by ACT Team was denied by the [facility] delegate. Pt resting calmly on stretcher, states she might be having some 'drug withdrawal' from 'pot', uses it to feel 'calm.' Pt endorses feeling
somewhat down, asks if she might be dying, mildly dramatic presentation. Pt denies active SI, does not express any suicidal ideation/plan/intent. Pt moving due to mild discomfort, asks if she is 'peeing', is on IVF and has diaper. Pt giving
limited answers, speech coherent, with no overt signs of active psychosis or aparna. [facility] record shows pt on medications from outside provider, including psych meds, apparently Rx by PCP. PDMP shows Oxycodone 5 mg and Klonopin 0.5 mg
prescribed by [facility]. UDS + for THC, Fty, Methamphetamine, negative for benzo. Pt states she 'used to like speed' and may have used it recently.
Imp: Schizoaffective d/o by history; Borderline personality d/o per outpatient record; appears at baseline with chronic psych symptomatology
Rec: return to care to [facility] ACT Team when medically stable
[2024-03-21 15:47] LABS: Iron 29 ug/dl (37-170); Magnesium 0.8 mg/dl (1.6-2.3)
[2024-03-21 15:52] LABS: Percent Saturation 9 % (20-50); Total Iron Binding Capacity 311 ug/dl (265-497)
[2024-03-21 16:00] VITALS: BP 135/78
[2024-03-21] MEDS: KLONOPIN 0.5 MG PO ×2 (16:02→21:12)
[2024-03-21 16:14] LABS: TSH Reflex To Free T4 1.64 uIU/ml (0.47-4.68)
[2024-03-21 16:18] LABS: Ferritin 72.5 ng/ml (11.1-264.0)
[2024-03-21 16:40] VITALS: BP 124/72; BMI 32.7
[2024-03-21 16:45] LABS: Osmolality Serum 271 mOsm/kg (275-300)
[2024-03-21 16:49] LABS: Folate 5.5 ng/ml (2.76-20); Vitamin B12 336 pg/ml (239-931)
[2024-03-21] MEDS: NSS with KCL 20 MEQ 1000 IV (17:23)
[2024-03-21] MEDS: LOVENOX 40 MG SC (17:30)
[2024-03-21] MEDS: ROXICODONE 5 MG PO (17:31)
[2024-03-21] MEDS: GLUCOPHAGE 1000 MG PO (17:31)
[2024-03-21] MEDS: MAGNESIUM SULFATE 50 IV (18:41)
[2024-03-21 19:05] VITALS: BP 121/74
[2024-03-21] MEDS: DESYREL 100 MG PO (21:12)
[2024-03-21] MEDS: CRESTOR 10 MG PO (21:12)
[2024-03-21 21:45] LABS: Urine Sodium 67 mmol/L (30-90)
[2024-03-21 21:51] LABS: Osmolality Urine 350 mOsm/kg (300-900)
[2024-03-21 23:41] VITALS: BP 141/76
[2024-03-22] VITALS (8 sets, daily range): BP systolic 102–149; BP diastolic 63–98; PULSE 80; O2SAT 98; BMI 32.7
[2024-03-22] MEDS: ROXICODONE 5 MG PO ×2 (03:58→11:58)
[2024-03-22 06:30] LABS: % Basophils 0.6 % (0-2); % Immature Granulocytes 0.4 % (0-0.5); % Lymphocytes 22.5 % (20.5-51.1); % Neutrophils 67.5 % (42.2-75.2); Absolute Basophils 0.1 10^3/uL (0-0.2); Absolute Eosinophils 0.1 10^3/uL (0-0.7); Absolute Lymphocytes 2.1 10^3/uL (1.2-3.4); Absolute Monocytes 0.8 10^3/uL (0.1-0.6); Absolute Neutrophils 6.4 10^3/uL (1.4-6.5); Hematocrit 39.3 % (37.0-47.0); Hemoglobin 13.2 g/dL (12.0-16.0); Mean Corp Hgb Conc. 33.6 g/dL (33.0-37.0); Mean Corpuscular Volume 80.5 fL (81.0-99.0); Mean Platelet Volume 9.7 fL (7.4-10.4); Nucleated Red Blood Cells % 0 %; Platelet Count 246 10^3/uL (130-400); Red Blood Cell Count 4.88 10^6/uL (4.20-5.40); White Blood Cell Count 9.5 10^3/uL (4.8-10.8)
[2024-03-22 07:04] LABS: ALT (SGPT) < 10 U/L (0-35); AST (SGOT) 22 U/L (14-36); Alkaline Phosphatase 101 U/L (38-126); Blood Urea Nitrogen 5 mg/dl (7-17); Calcium 9.8 mg/dl (8.4-10.2); Carbon Dioxide 27 mmol/L (22-30); Chloride 102 mmol/L (98-107); Estimated Creatinine Clearance 104 ml/min; Glucose 103 mg/dl (70-99); HDL Cholesterol 48 mg/dl; LDL Cholesterol, Calculated 64 mg/dl; Magnesium 1.6 mg/dl (1.6-2.3); Potassium 3.3 mmol/L (3.5-5.1); Sodium 138 mmol/L (135-145); Total Bilirubin 0.9 mg/dl (0.2-1.3); Total Cholesterol 136 mg/dl (50-199); Total Protein 6.5 g/dl (6.3-8.2); Triglyceride 121 mg/dl (10-149); Very Low Density Lipoprotein 24 mg/dl (0-30); eGFR > 60.00
[2024-03-22] MEDS: GLUCOPHAGE 1000 MG PO ×2 (08:02→17:22)
[2024-03-22] MEDS: ASPIRIN 325 MG PO (08:02)
[2024-03-22] MEDS: NEURONTIN 200 MG PO (08:02)
[2024-03-22] MEDS: VITAMIN D3 (cholecalciferol) 50 MCG PO (08:02)
[2024-03-22] MEDS: LOPRESSOR 25 MG PO (08:02)
[2024-03-22] MEDS: EFFEXOR XR 37.5 MG PO (08:02)
[2024-03-22] MEDS: KLONOPIN 0.5 MG PO ×3 (08:51→17:22)
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
[2024-03-22] MEDS: KCL 40 MEQ PO (14:38)
[2024-03-22 16:36] LABS: Glucose - Point of Care 110 mg/dl (70-99)
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
[2024-03-22] MEDS: NOVOLOG FLEXPEN-LOW RESISTANCE SC (17:14)
[2024-03-22] MEDS: LOVENOX 40 MG SC (17:22)
[2024-03-22] MEDS: GEODON 120 MG PO (17:23)
[2024-03-22 21:09] LABS: Glucose - Point of Care 109 mg/dl (70-99)
[2024-03-22] MEDS: CRESTOR PO (21:20)
[2024-03-23] VITALS (7 sets, daily range): BP systolic 116–143; BP diastolic 69–84; PULSE 77; O2SAT 96
[2024-03-23] MEDS: DESYREL 100 MG PO ×2 (00:44→21:18)
[2024-03-23] MEDS: ROXICODONE 5 MG PO ×3 (00:48→15:50)
[2024-03-23 06:08] LABS: % Basophils 0.7 % (0-2); % Eosinophils 1.1 % (0-6); % Immature Granulocytes 0.3 % (0-0.5); % Lymphocytes 16.4 % (20.5-51.1); % Monocytes 6.5 % (1.7-9.3); Absolute Basophils 0.1 10^3/uL (0-0.2); Absolute Eosinophils 0.1 10^3/uL (0-0.7); Absolute Lymphocytes 1.6 10^3/uL (1.2-3.4); Absolute Monocytes 0.6 10^3/uL (0.1-0.6); Absolute Neutrophils 7.3 10^3/uL (1.4-6.5); Hematocrit 37.1 % (37.0-47.0); Hemoglobin 12.4 g/dL (12.0-16.0); Mean Corp Hgb Conc. 33.4 g/dL (33.0-37.0); Mean Corpuscular Volume 80.8 fL (81.0-99.0); Nucleated Red Blood Cells % 0 %; Platelet Count 214 10^3/uL (130-400); Red Blood Cell Count 4.59 10^6/uL (4.20-5.40); White Blood Cell Count 9.7 10^3/uL (4.8-10.8)
[2024-03-23 07:02] LABS: ALT (SGPT) < 10 U/L (0-35); AST (SGOT) 20 U/L (14-36); Albumin 3.6 g/dl (3.5-5.0); Alkaline Phosphatase 94 U/L (38-126); Blood Urea Nitrogen 6 mg/dl (7-17); Calcium 9.7 mg/dl (8.4-10.2); Carbon Dioxide 26 mmol/L (22-30); Chloride 104 mmol/L (98-107); Estimated Creatinine Clearance 104 ml/min; Glucose 94 mg/dl (70-99); Potassium 3.7 mmol/L (3.5-5.1); Sodium 137 mmol/L (135-145); Total Bilirubin 0.9 mg/dl (0.2-1.3); Total Protein 6.1 g/dl (6.3-8.2); eGFR > 60.00
[2024-03-23] MEDS: GLUCOPHAGE 1000 MG PO ×2 (08:05→17:11)
[2024-03-23] MEDS: LOPRESSOR 25 MG PO (08:06)
[2024-03-23] MEDS: NEURONTIN 200 MG PO (08:06)
[2024-03-23] MEDS: VITAMIN D3 (cholecalciferol) 50 MCG PO (08:06)
[2024-03-23] MEDS: EFFEXOR XR 37.5 MG PO (08:06)
[2024-03-23] MEDS: KLONOPIN 0.5 MG PO ×3 (08:06→17:11)
[2024-03-23] MEDS: ASPIRIN 325 MG PO (08:06)
[2024-03-23 08:09] LABS: Glucose - Point of Care 124 mg/dl (70-99)
[2024-03-23] MEDS: NOVOLOG FLEXPEN-LOW RESISTANCE SC ×3 (08:09→17:03)
--- NOTE | 2024-03-23 11:00 | W.PN.UPDATE ---
Addendum entered and electronically signed by Capo Amadna MD 03/24/24 13:33:
ecg check qtc as geodon can lengthen.
Original Note:
Update Note
Progress Note Update
patient seen chart reviewed. spoke with nursing. mrs lima is very well known to me from past admits. she is pleasant this am. reports she is so happy to be here. feels calm and safe for the first time in a long time. she slept okay. she is eating
well. she has rather negative things to say about her stay at [facility]. she reports that she often felt unsafe .by contrast she feels her care here is very good. she is taking medications as prescribed no apparent ill effects.
[2024-03-23 11:04] LABS: Glycohemoglobin (HgbA1c) 5.3 % (4.0-5.6)
[2024-03-23 12:09] LABS: Glucose - Point of Care 110 mg/dl (70-99)
--- NOTE | 2024-03-23 15:16 | CM ---
Addendum entered by TAWANA Turcios 03/25/24 16:02:
Therese is from office on aging.
Original Note:
Received call from legal advisor that patient can take part in hearing over speaker phone. Put court on speaker for patient. It was determined that patient will stay at until placement is found for her. POA was taken from daughter. Gaurdianship will
be pursued at facility. Spoke with Therese Gee who stated that she will email new paperwork to .
Plan: Case management will continue to follow and assist with discharge planning. NH when facility located.
[2024-03-23 16:49] LABS: Glucose - Point of Care 111 mg/dl (70-99)
[2024-03-23] MEDS: LOVENOX 40 MG SC (17:11)
[2024-03-23] MEDS: GEODON 120 MG PO (17:11)
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
[2024-03-23] MEDS: CRESTOR 10 MG PO (21:18)
[2024-03-23 21:26] LABS: Glucose - Point of Care 133 mg/dl (70-99)
[2024-03-24] VITALS (7 sets, daily range): BP systolic 96–147; BP diastolic 57–83; PULSE 78; O2SAT 95
[2024-03-24] MEDS: ROXICODONE 5 MG PO ×2 (03:18→12:04)
[2024-03-24 06:46] LABS: % Basophils 0.6 % (0-2); % Eosinophils 0.6 % (0-6); % Immature Granulocytes 0.3 % (0-0.5); % Lymphocytes 13.7 % (20.5-51.1); % Monocytes 6.1 % (1.7-9.3); % Neutrophils 78.7 % (42.2-75.2); Absolute Basophils 0.1 10^3/uL (0-0.2); Absolute Eosinophils 0.1 10^3/uL (0-0.7); Absolute Lymphocytes 1.5 10^3/uL (1.2-3.4); Absolute Monocytes 0.7 10^3/uL (0.1-0.6); Absolute Neutrophils 8.6 10^3/uL (1.4-6.5); Hematocrit 36.9 % (37.0-47.0); Hemoglobin 12.4 g/dL (12.0-16.0); Mean Corp Hgb Conc. 33.6 g/dL (33.0-37.0); Mean Corpuscular Hgb 27.9 pg (27.0-31.0); Mean Corpuscular Volume 82.9 fL (81.0-99.0); Mean Platelet Volume 10.3 fL (7.4-10.4); Nucleated Red Blood Cells % 0 %; Platelet Count 240 10^3/uL (130-400); Red Blood Cell Count 4.45 10^6/uL (4.20-5.40); Red Cell Dist. Width 14.8 % (11.5-14.5); White Blood Cell Count 10.9 10^3/uL (4.8-10.8)
[2024-03-24 07:43] LABS: ALT (SGPT) < 10 U/L (0-35); AST (SGOT) 17 U/L (14-36); Albumin 3.6 g/dl (3.5-5.0); Alkaline Phosphatase 93 U/L (38-126); Blood Urea Nitrogen 7 mg/dl (7-17); Calcium 9.7 mg/dl (8.4-10.2); Carbon Dioxide 25 mmol/L (22-30); Chloride 103 mmol/L (98-107); Estimated Creatinine Clearance 104 ml/min; Glucose 104 mg/dl (70-99); Potassium 3.4 mmol/L (3.5-5.1); Sodium 139 mmol/L (135-145); Total Bilirubin 0.6 mg/dl (0.2-1.3); eGFR > 60.00
--- NOTE | 2024-03-24 07:46 | VATNOTE ---
During routine assessment, phlebitis noted to IV site with redness and mild discomfort per patient. IV discontinued and new IV restarted. Heat applied to site of phlebitis.
[2024-03-24 07:57] LABS: Glucose - Point of Care 133 mg/dl (70-99)
[2024-03-24] MEDS: VITAMIN D3 (cholecalciferol) 50 MCG PO (08:15)
[2024-03-24] MEDS: NEURONTIN 200 MG PO (08:15)
[2024-03-24] MEDS: GLUCOPHAGE 1000 MG PO ×2 (08:15→17:08)
[2024-03-24] MEDS: ASPIRIN 325 MG PO (08:15)
[2024-03-24] MEDS: KLONOPIN 0.5 MG PO ×3 (08:15→17:08)
[2024-03-24] MEDS: EFFEXOR XR 37.5 MG PO (08:15)
[2024-03-24] MEDS: LOPRESSOR 25 MG PO (08:15)
[2024-03-24] MEDS: NOVOLOG FLEXPEN-LOW RESISTANCE SC ×3 (08:29→16:43)
[2024-03-24 11:58] LABS: Glucose - Point of Care 130 mg/dl (70-99)
--- NOTE | 2024-03-24 15:58 | CM ---
Addendum entered by TAWANA Turcios 03/24/24 16:32:
Gisselle is also admissions at [facility].
Will send referral to [facility] and [facility].
Original Note:
Spoke with Gisselle in admissions at [facility] who stated that there may be a bed at [facility] for patient. Patient would be a level 2 and therefore would need evaluation form [facility]. Will send PASSR and referral.
Received documents from Therese at the office on aging. Will place on chart.
Plan: Case management will continue to follow and assist with discharge planning. SNF.
[2024-03-24 16:40] LABS: Glucose - Point of Care 110 mg/dl (70-99)
[2024-03-24] MEDS: LOVENOX 40 MG SC (17:07)
[2024-03-24] MEDS: GEODON 120 MG PO (17:08)
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
[2024-03-24] MEDS: CRESTOR 10 MG PO (21:16)
[2024-03-24 22:12] LABS: Glucose - Point of Care 121 mg/dl (70-99)
[2024-03-24] MEDS: DESYREL PO (22:56)
[2024-03-25] VITALS (8 sets, daily range): BP systolic 100–140; BP diastolic 61–76; BMI 31.4
[2024-03-25] MEDS: ROXICODONE 5 MG PO (02:22)
[2024-03-25 07:42] LABS: Glucose - Point of Care 109 mg/dl (70-99)
[2024-03-25] MEDS: ASPIRIN 325 MG PO (08:39)
[2024-03-25] MEDS: NOVOLOG FLEXPEN-LOW RESISTANCE SC ×3 (08:39→16:35)
[2024-03-25] MEDS: KLONOPIN 0.5 MG PO ×3 (08:40→17:18)
[2024-03-25] MEDS: GLUCOPHAGE 1000 MG PO ×2 (08:40→16:50)
[2024-03-25] MEDS: LOPRESSOR 25 MG PO (08:40)
[2024-03-25] MEDS: VITAMIN D3 (cholecalciferol) 50 MCG PO (08:40)
[2024-03-25] MEDS: EFFEXOR XR 37.5 MG PO (08:40)
[2024-03-25] MEDS: NEURONTIN 200 MG PO (08:40)
[2024-03-25] MEDS: SENOKOT-S 1 TABLET PO (09:23)
--- NOTE | 2024-03-25 11:17 | CM ---
Addendum entered by TAWANA Turcios 03/25/24 16:04:
The rest of FED assessment will need to be completed by CM.
Addendum entered by CORINA TurciosW 03/25/24 15:52:
FED assessment signed by patient (assessment from the office on aging)
Patient was upset today stating that she will not go to an NH. (she is court ordered-order on chart)
Patient stated that she will not go to [facility] as it is under the same ownership as [facility] which she did not like. She wants [facility]. Patient asked that her therapist be called, Earline. Put Earline on the line. Just called the main
number of [facility] and asked for Earline. Earline got on the line and got patient to sign the necessary documents.
Will await return call from office on aging once level 2 is completed.
Will send referral to [facility].
Original Note:
Confirmed that patient's PASSR and updated referral was sent to Gisselle in admissions at [facility]. Placed a call to office on aging and requested to speak with someone to schedule level 2 assessment. Call was transferred to Judie Collins who does
level 2 assessments but had to leave a voice mail message.
MA-51 left for attending on chart. Messaged attending to make aware.
Received return call from Jduie who stated that she will send a packet to detail what is needed for the level 2 assessment. Will leave packet on desk for reference for coverage.
Plan: Case management will continue to follow and assist with discharge planning/hopeful transfer to [facility] after level 2 assessment completed.
[2024-03-25 11:35] LABS: Glucose - Point of Care 107 mg/dl (70-99)
--- NOTE | 2024-03-25 13:30 | W.PN.UPDATE ---
Update Note
Progress Note Update
patient seen chart reviewed. touched base w nursing . mrs lima is very pleasant and content here. she says she is grateful for the care she is receiving and wishes she could live here. she is tolerating her psych medications. would leave as they
are for now. while in the future it would be preferable for her to be tapered off klonopin i would not bacon to do so. she has taken it for many years . we did talk about how it would be healthy for her brain to eventually be off it. we also talked
about future followup at [facility]. she does not want to continue w [facility]. she can of course receive services without being an [facility] client.
[2024-03-25 16:34] LABS: Glucose - Point of Care 145 mg/dl (70-99)
[2024-03-25] MEDS: LOVENOX 40 MG SC (17:16)
[2024-03-25] MEDS: GEODON 120 MG PO (17:16)
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
[2024-03-25] MEDS: CRESTOR 10 MG PO (21:19)
[2024-03-25 21:41] LABS: Glucose - Point of Care 104 mg/dl (70-99)
[2024-03-25] MEDS: DESYREL PO (23:23)
[2024-03-26] MEDS: ROXICODONE 5 MG PO (03:05)
[2024-03-26] MEDS: ASPIRIN 325 MG PO (07:46)
[2024-03-26] MEDS: EFFEXOR XR 37.5 MG PO (07:47)
[2024-03-26] MEDS: GLUCOPHAGE 1000 MG PO ×2 (07:47→17:17)
[2024-03-26] MEDS: NEURONTIN 200 MG PO (07:47)
[2024-03-26] MEDS: LOPRESSOR 25 MG PO (07:47)
[2024-03-26] MEDS: VITAMIN D3 (cholecalciferol) 50 MCG PO (07:47)
[2024-03-26] MEDS: KLONOPIN 0.5 MG PO ×3 (07:48→17:18)
[2024-03-26 07:50] VITALS: BP 125/68
[2024-03-26 07:54] LABS: Glucose - Point of Care 113 mg/dl (70-99)
[2024-03-26] MEDS: NOVOLOG FLEXPEN-LOW RESISTANCE SC ×3 (07:59→16:44)
--- NOTE | 2024-03-26 08:55 | VATNOTE ---
VAT rounds: Left arm continues with some redness but no complaints of discomfort. Encouraged warm compress. Patient declined at this time. Will continue to monitor closely.
[2024-03-26 10:05] VITALS: BP 125/68
[2024-03-26 11:57] LABS: Glucose - Point of Care 95 mg/dl (70-99)
--- NOTE | 2024-03-26 12:15 | W.PN.UPDATE ---
Update Note
Progress Note Update
patient seen chart reviewed. mrs lima remains pleasant and content here. i do have some concern that she needs to be moving around a bit more but her psych status is quite good. PT saw her in the past but it would be helpful to have her up and
about more frequently during the day. will reorder PT consult. the patient offers no complaints. will not make any changes in her psych medications.
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
[2024-03-26 15:05] VITALS: BP 129/70
[2024-03-26 16:37] LABS: Glucose - Point of Care 161 mg/dl (70-99)
[2024-03-26] MEDS: GEODON 120 MG PO (17:17)
[2024-03-26] MEDS: LOVENOX 40 MG SC (17:18)
[2024-03-26] MEDS: DESYREL 100 MG PO (21:11)
[2024-03-26] MEDS: CRESTOR 10 MG PO (21:11)
[2024-03-26 21:23] LABS: Glucose - Point of Care 108 mg/dl (70-99)
[2024-03-26 23:00] VITALS: BP 124/69
[2024-03-27] MEDS: ROXICODONE 5 MG PO ×2 (04:37→20:49)
[2024-03-27 07:00] VITALS: BP 122/76
[2024-03-27 07:29] LABS: Glucose - Point of Care 126 mg/dl (70-99)
[2024-03-27] MEDS: NOVOLOG FLEXPEN-LOW RESISTANCE SC ×3 (07:30→16:42)
[2024-03-27] MEDS: GLUCOPHAGE 1000 MG PO ×2 (07:31→17:45)
[2024-03-27] MEDS: LOPRESSOR 25 MG PO (07:31)
[2024-03-27] MEDS: NEURONTIN 200 MG PO (07:31)
[2024-03-27] MEDS: EFFEXOR XR 37.5 MG PO (07:31)
[2024-03-27] MEDS: KLONOPIN 0.5 MG PO ×3 (07:31→17:44)
[2024-03-27] MEDS: ASPIRIN 325 MG PO (07:31)
[2024-03-27] MEDS: VITAMIN D3 (cholecalciferol) 50 MCG PO (07:31)
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
[2024-03-27] MEDS: MYLICON 80 MG PO (10:22)
[2024-03-27 11:56] LABS: Glucose - Point of Care 111 mg/dl (70-99)
--- NOTE | 2024-03-27 12:25 | W.PN.UPDATE ---
Update Note
Progress Note Update
patient seen chart reviewed. araseli continues to be very positive in her demeanor although she is complaining of some nausea today. she has already tried simethicone but still feels nauseated. she can try some pepto bismal one dose now to see if
that relieves the nausea. did not make any changes in her medications otherwise.
[2024-03-27] MEDS: PINK BISMUTH 525 MG PO (12:38)
[2024-03-27 13:04] VITALS: BP 118/74; O2SAT 97
--- NOTE | 2024-03-27 14:06 | VATNOTE ---
VAT rounds: Lt. arm with minimal redness, denies discomfort, only itchy. Warm compress encouraged. Will follow.
[2024-03-27 15:00] VITALS: BP 108/67
[2024-03-27 16:37] LABS: Glucose - Point of Care 128 mg/dl (70-99)
[2024-03-27] MEDS: GEODON 120 MG PO (17:45)
[2024-03-27] MEDS: LOVENOX 40 MG SC (17:45)
[2024-03-27] MEDS: DESYREL 100 MG PO (20:44)
[2024-03-27] MEDS: CRESTOR 10 MG PO (20:44)
[2024-03-27 21:30] LABS: Glucose - Point of Care 111 mg/dl (70-99)
[2024-03-27 23:29] VITALS: BP 128/80
[2024-03-28] MEDS: TYLENOL 650 MG PO (00:45)
[2024-03-28] MEDS: ROXICODONE 5 MG PO ×2 (02:50→14:02)
[2024-03-28 07:00] VITALS: BP 120/72
[2024-03-28] MEDS: ASPIRIN 325 MG PO (07:30)
[2024-03-28] MEDS: KLONOPIN 0.5 MG PO ×3 (07:30→17:13)
[2024-03-28] MEDS: EFFEXOR XR 37.5 MG PO (07:30)
[2024-03-28] MEDS: GLUCOPHAGE 1000 MG PO ×2 (07:31→17:13)
[2024-03-28] MEDS: NEURONTIN 200 MG PO (07:31)
[2024-03-28] MEDS: VITAMIN D3 (cholecalciferol) 50 MCG PO (07:31)
[2024-03-28] MEDS: LOPRESSOR 25 MG PO (07:31)
[2024-03-28 07:39] LABS: Glucose - Point of Care 133 mg/dl (70-99)
[2024-03-28] MEDS: NOVOLOG FLEXPEN-LOW RESISTANCE SC ×3 (07:45→16:28)
[2024-03-28 11:16] LABS: Glucose - Point of Care 114 mg/dl (70-99)
[2024-03-28 15:00] VITALS: BP 117/68
[2024-03-28 16:27] LABS: Glucose - Point of Care 138 mg/dl (70-99)
--- NOTE | 2024-03-28 16:46 | CM ---
Reviewed the chart notes and spoke with the patient at the bedside. Level II paperwork completed and faxed with [facility]RR to [facility]. CM continues to be available to patient/family and is monitoring medical plan for needs at discharge.
Plan: SNF once Level II completed and facility found.
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
[2024-03-28] MEDS: LOVENOX 40 MG SC (17:13)
[2024-03-28] MEDS: GEODON 120 MG PO (17:13)
[2024-03-28] MEDS: CRESTOR 10 MG PO (21:16)
[2024-03-28] MEDS: DESYREL 100 MG PO (21:16)
[2024-03-28 21:17] LABS: Glucose - Point of Care 118 mg/dl (70-99)
[2024-03-28 23:18] VITALS: BP 106/63
[2024-03-29 07:33] VITALS: BP 114/74
[2024-03-29 07:36] LABS: Glucose - Point of Care 119 mg/dl (70-99)
[2024-03-29] MEDS: NOVOLOG FLEXPEN-LOW RESISTANCE SC ×3 (07:38→17:54)
[2024-03-29] MEDS: ASPIRIN 325 MG PO (08:03)
[2024-03-29] MEDS: LOPRESSOR 25 MG PO (08:03)
[2024-03-29] MEDS: GLUCOPHAGE 1000 MG PO ×2 (08:04→17:54)
[2024-03-29] MEDS: VITAMIN D3 (cholecalciferol) 50 MCG PO (08:04)
[2024-03-29] MEDS: EFFEXOR XR 37.5 MG PO (08:04)
[2024-03-29] MEDS: KLONOPIN 0.5 MG PO ×3 (08:04→17:58)
[2024-03-29] MEDS: NEURONTIN 200 MG PO (08:04)
--- NOTE | 2024-03-29 10:42 | W.PN.UPDATE ---
Update Note
Progress Note Update
Patient seen, chart reviewed, discussed with RN. Ms. Carlson is awake, alert, pleasant and cooperative. She tells me she is doing well and 'loves it here'. She did not see to think she was leaving. It appears she is awaiting SNF placement. She tells
me she is eating well, sleeping well and feels very 'happy'. Denies any SI/SB, no signs of psychosis or aparna noted.
Impression/Recommendations: Schizoaffective disorder; Borderline personality disorder - Would continue current psychotropic medication regimen which includes Effexor 37.5mg daily, Trazodone 100mg HS, Gabapentin 200mg daily, Klonopin 0.5mg TID, and
Geodon 120mg PM. It appears attempts to wean Klonopin have been unsuccessful in past, this should be consider within her senior care plan and can be addressed with her OP team. Appears quite stable on current regimen.
[2024-03-29 12:08] LABS: Glucose - Point of Care 81 mg/dl (70-99)
--- NOTE | 2024-03-29 12:58 | CM ---
Received e-mail from Judie Collins Ph. [phone] requesting a psychiatric evaluation for the patient not just notes. TT to attending relaying this information and requesting consult to be placed for evaluation.
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
[2024-03-29 15:20] VITALS: BP 120/78
--- NOTE | 2024-03-29 15:41 | CM ---
CM reviewed chart and pt remains SNF appropriate
Level II assessment pending
Pt continued to be followed the CM at and [facility] for protective service
Court preliminary decree received and placed on chart
Plan for hearing for emergent guardianship scheduled for 04/01 at 2:30pm
Pt will require LT SNF placement
[facility] following for potential placement pending level II assessment and guardianship hearing
Discharge Disposition- SNF LTC
[2024-03-29 16:28] LABS: Glucose - Point of Care 94 mg/dl (70-99)
[2024-03-29] MEDS: GEODON 120 MG PO (17:54)
[2024-03-29] MEDS: LOVENOX 40 MG SC (17:55)
[2024-03-29 17:57] LABS: Glucose - Point of Care 108 mg/dl (70-99)
[2024-03-29 21:41] LABS: Glucose - Point of Care 107 mg/dl (70-99)
[2024-03-29] MEDS: CRESTOR 10 MG PO (21:57)
[2024-03-29] MEDS: DESYREL 100 MG PO (21:58)
[2024-03-29 23:10] VITALS: BP 126/72
[2024-03-30] MEDS: ROXICODONE 5 MG PO ×2 (00:13→06:20)
[2024-03-30] MEDS: TYLENOL 650 MG PO (03:36)
[2024-03-30 07:04] LABS: Glucose - Point of Care 137 mg/dl (70-99)
[2024-03-30] MEDS: NOVOLOG FLEXPEN-LOW RESISTANCE SC ×2 (07:56→12:41)
[2024-03-30 07:58] VITALS: BP 123/66
[2024-03-30] MEDS: ASPIRIN 325 MG PO (07:59)
[2024-03-30] MEDS: KLONOPIN 0.5 MG PO ×3 (07:59→18:06)
[2024-03-30] MEDS: NEURONTIN 200 MG PO (07:59)
[2024-03-30] MEDS: GLUCOPHAGE 1000 MG PO ×2 (07:59→18:05)
[2024-03-30] MEDS: VITAMIN D3 (cholecalciferol) 50 MCG PO (08:00)
[2024-03-30] MEDS: LOPRESSOR 25 MG PO (08:00)
[2024-03-30] MEDS: EFFEXOR XR 37.5 MG PO (08:00)
--- NOTE | 2024-03-30 08:34 | CM ---
Received court order information from [facility], placed on patient's chart to be scanned in to permanent record.
--- NOTE | 2024-03-30 09:31 | PN.CDI ---
CDI
- -
CDI:
Physician Documentation Request
Admit Date: 03/28/24 12:09
Dear Doctor Alexander,
Please review the following and provide your response in the progress notes.
Clinical Indicators:
The diagnosis of encephalopathy was documented on 03/21 H&P but is not consistently noted in subsequent documentation.
- 03/21 H&P 'Acute leukocytosis with Encephalopathy'
- 03/22 PN 'Mental status/cognitive status improved since admission'
- Urine positive for fentanyl, amphetamines, methamphetamine, marijuana
- 03/21 ER Physician 'Patient is labile occasionally agitated. Not cooperative with exam here'
Please clarify the following:
____ - Encephalopathy (please specify type) was present on admission and is now resolved.
____ - Encephalopathy (please specify type) was present on admission and is still being monitored, evaluated or treated
____ - Encephalopathy was ruled out
____ - Encephalopathy (please specify type) is still a likely, suspected, probable diagnosis
____ - Other
Use of terms such as suspected, likely, concern for, or probable (associated with a specific diagnosis that is being evaluated, monitored, or treated as if it exists) are acceptable and can be coded in the inpatient setting, when documented at the
time of discharge.
Thank you,
Henry Baker RN
CDI Specialist
Please use your independent medical judgment in providing your response.
[2024-03-30 11:58] LABS: Glucose - Point of Care 102 mg/dl (70-99)
--- NOTE | 2024-03-30 12:17 | W.PN.UPDATE ---
Update Note
Progress Note Update
patient seen chart reviewed. the patient does not feel well today. she reports she has diarrhea....thursday she c/o nausea. she has no energy. talked with her about cutting back noon time klonopin as it will only make her more lethargic. she has
gotten very upset in the past when efforts were made to decrease her klonopin. told me today 'that would be a mistake.' will see how she is tomorrow. for now i did not change any of her medical meds. i did order pt consult on the . patient is
eager to engage in PT and get stronger.
--- NOTE | 2024-03-30 12:46 | CM ---
ready to wear department manager reviewed patient's chart and plan is for emergency guardian hearing on Thursday04/01/24, at 2:30pm. After guardian is in place spring encaser will proceed with skilled placement. Level 2 evaluation by the county will need to be completed.
Plan; To follow up with the [facility] to see where they plan on placing patient after hearing on Thursday.
[2024-03-30] MEDS: PINK BISMUTH 525 MG PO (13:45)
[2024-03-30 15:00] VITALS: BP 113/71; BP 123/75; PULSE 85; PULSE 87; O2SAT 95
[2024-03-30 15:33] VITALS: BP 123/75
[2024-03-30 16:30] LABS: Glucose - Point of Care 163 mg/dl (70-99)
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
[2024-03-30] MEDS: GEODON 120 MG PO (18:05)
[2024-03-30] MEDS: LOVENOX 40 MG SC (18:06)
[2024-03-30] MEDS: FIRVANQ 125 MG PO (18:09)
[2024-03-30] MEDS: NOVOLOG FLEXPEN-LOW RESISTANCE 1 UNITS SC (18:22)
[2024-03-30] MEDS: CRESTOR 10 MG PO (21:05)
[2024-03-30] MEDS: DESYREL 100 MG PO (21:05)
[2024-03-30 21:13] LABS: Glucose - Point of Care 105 mg/dl (70-99)
[2024-03-30 23:30] VITALS: BP 108/64
[2024-03-31] MEDS: FIRVANQ 125 MG PO ×4 (00:39→17:08)
[2024-03-31] MEDS: ROXICODONE 5 MG PO ×2 (02:33→17:23)
[2024-03-31 06:36] LABS: % Basophils 0.8 % (0-2); % Eosinophils 1.5 % (0-6); % Immature Granulocytes 0.4 % (0-0.5); % Lymphocytes 18.9 % (20.5-51.1); % Monocytes 7.9 % (1.7-9.3); % Neutrophils 70.5 % (42.2-75.2); Absolute Basophils 0.1 10^3/uL (0-0.2); Absolute Eosinophils 0.1 10^3/uL (0-0.7); Absolute Lymphocytes 1.7 10^3/uL (1.2-3.4); Absolute Monocytes 0.7 10^3/uL (0.1-0.6); Absolute Neutrophils 6.4 10^3/uL (1.4-6.5); Hematocrit 38.1 % (37.0-47.0); Hemoglobin 12.5 g/dL (12.0-16.0); Mean Corp Hgb Conc. 32.8 g/dL (33.0-37.0); Mean Corpuscular Volume 82.3 fL (81.0-99.0); Mean Platelet Volume 9.6 fL (7.4-10.4); Nucleated Red Blood Cells % 0 %; Platelet Count 270 10^3/uL (130-400); Red Blood Cell Count 4.63 10^6/uL (4.20-5.40); Red Cell Dist. Width 14.7 % (11.5-14.5); White Blood Cell Count 9.1 10^3/uL (4.8-10.8)
[2024-03-31 07:05] LABS: Glucose - Point of Care 101 mg/dl (70-99)
[2024-03-31 07:13] LABS: Blood Urea Nitrogen 11 mg/dl (7-17); Calcium 10.1 mg/dl (8.4-10.2); Carbon Dioxide 28 mmol/L (22-30); Chloride 101 mmol/L (98-107); Estimated Creatinine Clearance 102 ml/min; Glucose 104 mg/dl (70-99); Potassium 4.1 mmol/L (3.5-5.1); Sodium 139 mmol/L (135-145); eGFR > 60.00
[2024-03-31 07:32] VITALS: BP 119/74
[2024-03-31] MEDS: NEURONTIN 200 MG PO (08:12)
[2024-03-31] MEDS: NOVOLOG FLEXPEN-LOW RESISTANCE SC ×3 (08:12→16:29)
[2024-03-31] MEDS: KLONOPIN 0.5 MG PO ×3 (08:13→17:10)
[2024-03-31] MEDS: EFFEXOR XR 37.5 MG PO (08:13)
[2024-03-31] MEDS: VITAMIN D3 (cholecalciferol) 50 MCG PO (08:13)
[2024-03-31] MEDS: GLUCOPHAGE 1000 MG PO ×2 (08:13→17:09)
[2024-03-31] MEDS: ASPIRIN 325 MG PO (08:13)
[2024-03-31] MEDS: LOPRESSOR 25 MG PO (08:13)
[2024-03-31] MEDS: TYLENOL 650 MG PO ×2 (09:43→22:18)
--- NOTE | 2024-03-31 10:59 | W.PN.UPDATE ---
Update Note
Progress Note Update
patient seen chart reviewed. ms lima is feeling much better physically. she was quite pleasant. she did have a serious issue to discuss....she does not like her son's partner and feels guilty about this. reassured her she does not have to like
her but she does have to understand that she cannot make him leave her. she said she has tried very hard to feel + about her but simply cannot. did not make any changes in meds. guardianship hearing is this week. patient for be here for a while
as dispo is sought.
[2024-03-31 11:20] LABS: Glucose - Point of Care 115 mg/dl (70-99)
--- NOTE | 2024-03-31 12:29 | CM ---
TC to Daniella Duffy, patients county attorney cell phone# [phone].
Per Daniella [facility] Hearing scheduled fort 2:30 pm, she will call this CM on her cell if there is a delay.
Gave Daniella cell phone candlemaker will need to call for patient to be included in hearing #[phone].
If she has any problems connecting with that number she will call this CM on her work cell- # [phone].
[2024-03-31 12:48] VITALS: PULSE 83; O2SAT 98
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
[2024-03-31 15:10] VITALS: BP 115/58
--- NOTE | 2024-03-31 15:25 | CM ---
Franky from [facility] here today to complete Level II Assessment
Provided printed clinicals to support assessment
Patient assigned to Therese Gee #[phone]
Once Guardianship is in place; CM will reach to Therese Gee to discuss skilled placement options... CM will then submit referrals via [facility]
[2024-03-31 16:04] LABS: Glucose - Point of Care 119 mg/dl (70-99)
[2024-03-31] MEDS: GEODON 120 MG PO (17:10)
[2024-03-31] MEDS: LOVENOX 40 MG SC (17:10)
[2024-03-31] MEDS: DESYREL 100 MG PO (21:37)
[2024-03-31] MEDS: CRESTOR 10 MG PO (21:37)
[2024-03-31 21:42] LABS: Glucose - Point of Care 93 mg/dl (70-99)
[2024-04-01] MEDS: FIRVANQ 125 MG PO ×4 (00:24→17:05)
[2024-04-01] MEDS: ROXICODONE 5 MG PO ×2 (04:42→11:06)
[2024-04-01 07:14] LABS: Glucose - Point of Care 106 mg/dl (70-99)
[2024-04-01 07:31] VITALS: BP 95/62
[2024-04-01] MEDS: NOVOLOG FLEXPEN-LOW RESISTANCE SC ×3 (08:36→16:47)
[2024-04-01] MEDS: KLONOPIN 0.5 MG PO ×3 (08:37→17:04)
[2024-04-01] MEDS: ASPIRIN 325 MG PO (08:37)
[2024-04-01] MEDS: GLUCOPHAGE 1000 MG PO ×2 (08:38→17:04)
[2024-04-01] MEDS: EFFEXOR XR 37.5 MG PO (08:38)
[2024-04-01] MEDS: VITAMIN D3 (cholecalciferol) 50 MCG PO (08:38)
[2024-04-01] MEDS: NEURONTIN 200 MG PO (08:38)
--- NOTE | 2024-04-01 10:02 | PN.CDI ---
CDI
- -
CDI:
Physician Documentation Request
Admit Date: 03/28/24 12:09
Dear Doctor Asaf,
Please review the following and provide your response in the progress notes.
Clinical Indicators:
The diagnosis of encephalopathy was documented on 03/21 H&P but is not consistently noted in subsequent documentation.
- 03/21 H&P 'Acute leukocytosis with Encephalopathy'
- 03/22 PN 'Mental status/cognitive status improved since admission'
- Urine positive for fentanyl, amphetamines, methamphetamine, marijuana
- 03/21 ER Physician 'Patient is labile occasionally agitated. Not cooperative with exam here'
Please clarify the following:
____ - Encephalopathy (please specify type) was present on admission and is now resolved.
____ - Encephalopathy (please specify type) was present on admission and is still being monitored, evaluated or treated
____ - Encephalopathy was ruled out
____ - Encephalopathy (please specify type) is still a likely, suspected, probable diagnosis
____ - Other
Use of terms such as suspected, likely, concern for, or probable (associated with a specific diagnosis that is being evaluated, monitored, or treated as if it exists) are acceptable and can be coded in the inpatient setting, when documented at the
time of discharge.
Thank you,
Henry Baker RN
CDI Specialist
Please use your independent medical judgment in providing your response.
[2024-04-01 11:12] LABS: Glucose - Point of Care 103 mg/dl (70-99)
[2024-04-01] MEDS: LOPRESSOR 25 MG PO (11:22)
[2024-04-01 11:23] VITALS: BP 106/67
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
[2024-04-01 15:00] VITALS: BP 96/53
--- NOTE | 2024-04-01 16:36 | CM ---
Guardianship hearing completed.
CM in room with patient.
Emotional support provided.
Court ordered guardian- Beth Aaliyah Reeves cell# [phone].
Aaliyah requested [facility], [facility], [facility], [facility], [facility], [facility], [facility], and [facility]. Referrals sent.
TC from [facility]- requested psychiatric consultation be faxed to her at [phone]. (eval from 01/05 sent).
Plan: skilled rehab/LTC when stable. no auth required.
[2024-04-01 16:43] LABS: Glucose - Point of Care 117 mg/dl (70-99)
[2024-04-01 16:57] VITALS: BP 95/61; PULSE 79; O2SAT 91
[2024-04-01] MEDS: LOVENOX 40 MG SC (17:03)
[2024-04-01] MEDS: GEODON 120 MG PO (17:04)
[2024-04-01] MEDS: DESYREL 100 MG PO (20:53)
[2024-04-01] MEDS: CRESTOR 10 MG PO (20:53)
[2024-04-01] MEDS: TYLENOL 650 MG PO (20:54)
[2024-04-01 21:57] LABS: Glucose - Point of Care 153 mg/dl (70-99)
[2024-04-01 23:22] VITALS: BP 123/75
[2024-04-02] MEDS: FIRVANQ 125 MG PO ×4 (00:11→17:12)
[2024-04-02] MEDS: ROXICODONE 5 MG PO ×2 (04:56→20:02)
[2024-04-02 07:00] VITALS: BP 114/73
[2024-04-02 08:00] LABS: Glucose - Point of Care 135 mg/dl (70-99)
[2024-04-02] MEDS: NOVOLOG FLEXPEN-LOW RESISTANCE SC ×3 (08:56→17:12)
[2024-04-02] MEDS: NEURONTIN 200 MG PO (08:58)
[2024-04-02] MEDS: LOPRESSOR 25 MG PO (08:58)
[2024-04-02] MEDS: EFFEXOR XR 37.5 MG PO (08:58)
[2024-04-02] MEDS: VITAMIN D3 (cholecalciferol) 50 MCG PO (08:58)
[2024-04-02] MEDS: ASPIRIN 325 MG PO (08:58)
[2024-04-02] MEDS: KLONOPIN 0.5 MG PO ×3 (08:58→17:13)
[2024-04-02 12:06] LABS: Glucose - Point of Care 106 mg/dl (70-99)
[2024-04-02] MEDS: TYLENOL 650 MG PO (13:08)
[2024-04-02] MEDS: GLUCOPHAGE 1000 MG PO ×2 (13:09→17:18)
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
[2024-04-02 15:00] VITALS: BP 123/71
[2024-04-02 16:23] LABS: Glucose - Point of Care 134 mg/dl (70-99)
[2024-04-02] MEDS: GEODON 120 MG PO (17:12)
[2024-04-02] MEDS: LOVENOX 40 MG SC (17:14)
[2024-04-02 20:39] VITALS: BP 157/99
[2024-04-02] MEDS: OFIRMEV 100 IV (20:52)
[2024-04-02 21:00] LABS: Glucose - Point of Care 104 mg/dl (70-99)
--- NOTE | 2024-04-02 21:00 | W.PN.UPDATE ---
Addendum entered and electronically signed by TRAE Yang 04/02/24 22:46:
UA seems pos ---> discussed with pharmcist regarding abx choise as pt with multiple allergies. Per review of chart has tolerated cephlosporin in past (2023,2021). Will dose with ceftrixone 200mg iv q24h
Original Note:
Update Note
Progress Note Update
2029 Notified by RN that pt has temp orally 103. and rigors. Asking for tylenol.
Reviewing chart it was noted that this is new temp for pt. will pain culture-->cxr, cbc.cmp,procal,covid, ua, lactic (may be falsely elevated due to rigors) and blood cultures. Unclear why pt spiking temp as this has not been and issue since admit.
No cough, no urinary complaint (though incont). Only c/o is headache.
2042 RN INTERN called by nurse due to spike in HR to 130s and increase respirations (pt also with 103 temp, rigors). Rapid EKG unable to accurately obtain due to rigors. Labs drawn. ofirmev given. NSS 500ml bolus.
[2024-04-02 21:23] LABS: % Basophils 0.1 % (0-2); % Eosinophils 0.4 % (0-6); % Immature Granulocytes 0.3 % (0-0.5); % Lymphocytes 13.6 % (20.5-51.1); % Monocytes 1.7 % (1.7-9.3); % Neutrophils 83.9 % (42.2-75.2); Absolute Monocytes 0.1 10^3/uL (0.1-0.6); Absolute Neutrophils 6.3 10^3/uL (1.4-6.5); Hemoglobin 14.8 g/dL (12.0-16.0); Mean Corp Hgb Conc. 32.9 g/dL (33.0-37.0); Mean Corpuscular Hgb 26.8 pg (27.0-31.0); Mean Corpuscular Volume 81.4 fL (81.0-99.0); Mean Platelet Volume 9.5 fL (7.4-10.4); Nucleated Red Blood Cells % 0 %; Platelet Count 231 10^3/uL (130-400); Red Blood Cell Count 5.53 10^6/uL (4.20-5.40); Red Cell Dist. Width 14.6 % (11.5-14.5); White Blood Cell Count 7.5 10^3/uL (4.8-10.8)
[2024-04-02 21:38] LABS: INR 0.98; PT 12.8 Sec (11.4-14.6)
[2024-04-02 21:40] LABS: COVID-19 Antigen Negative (Negative)
[2024-04-02 21:57] LABS: Urine Albumin Negative (Neg - Trace); Urine Bilirubin Negative (Negative); Urine Character Slightly Cloudy (Clear); Urine Color Yellow; Urine Glucose Negative (Negative); Urine Ketone 1+ (Negative); Urine Leukocyte 2+ (Negative); Urine Nitrite Negative (Negative); Urine Occult Blood 2+ (Negative); Urine Specific Gravity 1.015 (<1.030); Urine Urobilinogen Negative (Neg - 1+)
[2024-04-02 22:04] LABS: Urine Red Blood Cell 16-20 /HPF (0-2); Urine White Cell >100 /HPF (0-5)
[2024-04-02 22:05] LABS: Urine Bacteria Few (Negative)
[2024-04-02 22:12] LABS: Lactic Acid 3.7 mmol/L (0.7-2.0)
[2024-04-02 22:18] LABS: ALT (SGPT) 15 U/L (0-35); AST (SGOT) 22 U/L (14-36); Albumin 3.8 g/dl (3.5-5.0); Alkaline Phosphatase 108 U/L (38-126); Blood Urea Nitrogen 11 mg/dl (7-17); Calcium 9.4 mg/dl (8.4-10.2); Carbon Dioxide 20 mmol/L (22-30); Chloride 101 mmol/L (98-107); Estimated Creatinine Clearance 102 ml/min; Glucose 140 mg/dl (70-99); Potassium 3.9 mmol/L (3.5-5.1); Sodium 134 mmol/L (135-145); Total Bilirubin 0.4 mg/dl (0.2-1.3); Total Protein 6.5 g/dl (6.3-8.2); eGFR > 60.00
[2024-04-02 22:24] LABS: Troponin I < 0.012 ng/ml
[2024-04-02 22:40] LABS: Procalcitonin 0.18 ng/ml (0.0-0.25)
[2024-04-02] MEDS: NSS 500 IV (22:51)
[2024-04-02] MEDS: DESYREL 100 MG PO (22:53)
[2024-04-02] MEDS: CRESTOR 10 MG PO (22:53)
--- NOTE | 2024-04-02 23:00 | PTCARENOTE ---
@2029;Pt shaking and stated,'I'm so cold'. Oral temp 103.0 and rectal temp 102.7 .@2035; TT TRAE Chapa on above note. @2044 rapid response called .Pt heart ranging 140-150's , rigors noted , Resp: increased 40 .
[2024-04-02 23:25] VITALS: BP 122/72
[2024-04-03] VITALS (7 sets, daily range): BP systolic 102–148; BP diastolic 56–81
[2024-04-03] MEDS: FIRVANQ 125 MG PO ×3 (01:13→13:53)
[2024-04-03] MEDS: STERILE WATER FOR INJECTION 20 ML IV (01:30)
[2024-04-03] MEDS: ROCEPHIN 2000 MG IV (01:34)
[2024-04-03 02:46] LABS: Lactic Acid 2.3 mmol/L (0.7-2.0)
[2024-04-03] MEDS: TYLENOL 650 MG PO ×3 (05:15→18:45)
[2024-04-03] MEDS: NSS 500 IV (05:42)
[2024-04-03 06:24] LABS: Lactic Acid 2.7 mmol/L (0.7-2.0)
[2024-04-03 07:13] LABS: % Basophils 0.3 % (0-2); % Immature Granulocytes 0.5 % (0-0.5); % Lymphocytes 2.8 % (20.5-51.1); % Monocytes 3.6 % (1.7-9.3); % Neutrophils 92.8 % (42.2-75.2); Absolute Immature Granulocytes 0.1 10^3/uL (0-0.05); Absolute Lymphocytes 0.4 10^3/uL (1.2-3.4); Absolute Monocytes 0.6 10^3/uL (0.1-0.6); Absolute Neutrophils 14.3 10^3/uL (1.4-6.5); Hematocrit 37.4 % (37.0-47.0); Hemoglobin 12.6 g/dL (12.0-16.0); Mean Corp Hgb Conc. 33.7 g/dL (33.0-37.0); Mean Corpuscular Hgb 27.8 pg (27.0-31.0); Mean Corpuscular Volume 82.4 fL (81.0-99.0); Nucleated Red Blood Cells % 0 %; Platelet Count 220 10^3/uL (130-400); Red Blood Cell Count 4.54 10^6/uL (4.20-5.40); Red Cell Dist. Width 14.6 % (11.5-14.5); White Blood Cell Count 15.4 10^3/uL (4.8-10.8)
[2024-04-03] MEDS: ASPIRIN 325 MG PO (07:41)
[2024-04-03] MEDS: EFFEXOR XR 37.5 MG PO (07:41)
[2024-04-03] MEDS: GLUCOPHAGE 1000 MG PO (07:41)
[2024-04-03] MEDS: VITAMIN D3 (cholecalciferol) 50 MCG PO (07:41)
[2024-04-03] MEDS: KLONOPIN 0.5 MG PO ×3 (07:41→17:22)
[2024-04-03] MEDS: NEURONTIN 200 MG PO (07:41)
[2024-04-03] MEDS: LOPRESSOR PO ×2 (07:42→07:56)
[2024-04-03 07:43] LABS: Blood Urea Nitrogen 12 mg/dl (7-17); Calcium 9.5 mg/dl (8.4-10.2); Carbon Dioxide 23 mmol/L (22-30); Chloride 98 mmol/L (98-107); Estimated Creatinine Clearance 87 ml/min; Glucose 133 mg/dl (70-99); Sodium 135 mmol/L (135-145); eGFR > 60.00
[2024-04-03 07:47] LABS: Glucose - Point of Care 127 mg/dl (70-99)
[2024-04-03 07:50] LABS: Procalcitonin 38.81 ng/ml (0.0-0.25)
[2024-04-03] MEDS: NOVOLOG FLEXPEN-LOW RESISTANCE SC ×2 (07:55→17:07)
--- NOTE | 2024-04-03 09:30 | PHA.VAN.IN ---
Assessment
- Assessment
Renal Function: Appears similar to baseline
Renal Function may be Overestimated due to: Obesity--BMI = 31.4
Maximum Temperature: 103
Minimum Temperature: 98.7
Concomitant Antimicrobials: Ceftriaxone
- Previous Dosing Experience
Previous Regimen: Vanc 1250mg IV q12h
Date of Regimen: 05/2022
Patient's SCR is: Similar to previous dosing experience
Patient's weight is: Decreased compared to previous dosing experience
Vanco DCED before levels drawn.
AUC Dosing Plan
- Dosing Variables
Dosing Weight (kg): 88
Dosing CrCl (ml/min): 87
Vd coefficient (L/kg): 0.6
- Empiric Dosing
Initial / Loading Dose: No load.
Maintenance Regimen: Vanc 1000mg IV q12h
Estimated AUC (mcg*h/mL): 513
Estimated Peak (mcg*h/mL): 31.5
Estimated Trough (mcg/ml): 13.6
Estimated Half Life (H): 9
- Monitoring
No levels ordered at this time: Consider levels after 04/04 1800 dose.
Pharmacokinetics Vancomycin I
- -
Patient Age: 68
Patient Sex: Female
Vancomycin Day #: 1
Indication: Other
Requesting Provider: Aditi
Pertinent Antimicrobial Allergies:
PCN = rash as child; Sulfa = unknown
Height / Weight:
Height 5 ft 6 in
Actual Weight 88.224 kg
IBW in k.3
Adjusted BW in k.9
- Vital Signs / Lab Results
Temp Pulse Resp BP Pulse Ox
98.7 F 99 20 104/61 95
04/03/24 07:00 04/03/24 07:56 04/03/24 07:00 04/03/24 07:56 04/03/24 07:00
Lab Results - Hematology
04/02/24 04/03/24
21:10 06:02
WBC 7.5 15.4 H
Lab Results - Chemistry
04/02/24 04/02/24 04/03/24
21:10 21:53 06:02
BUN Cancelled 11 12
Creatinine Cancelled 0.6 0.7
Estimated Creat Clear Cancelled 102 87
Albumin Cancelled 3.8
04/02/24 04/02/24 04/03/24
21:10 21:53 02:23
Lactic Acid Cancelled 3.7 H 2.3 H
04/03/24
06:02
Lactic Acid 2.7 H
Lab Results - Urine
04/02/24
21:49
Urine Nitrite (Reflex) Negative
Leukocyte Esterase Rfl 2+ A
Urine WBC (Reflex) >100 A
Ur Squamous Epith Cells 6-10
Urine Bacteria (Reflex) Few A
[2024-04-03] MEDS: LR 1000 IV ×2 (09:55→21:36)
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
[2024-04-03] MEDS: VANCOCIN 200 IV (10:29)
--- NOTE | 2024-04-03 11:46 | PTCARENOTE ---
Addendum entered by Luma Ordonez RN 04/03/24 11:50:
Made hospitalist aware through TT that patient prelim bcx resulted for gram negative bacteria
Original Note:
Made hospitalist aware through TT that patient bcx are positive
[2024-04-03 11:47] LABS: Glucose - Point of Care 153 mg/dl (70-99)
[2024-04-03 12:15] LABS: Lactic Acid 1.9 mmol/L (0.7-2.0)
[2024-04-03] MEDS: ROXICODONE 5 MG PO ×2 (13:53→19:59)
[2024-04-03] MEDS: NOVOLOG FLEXPEN-LOW RESISTANCE 1 UNITS SC (13:54)
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
[2024-04-03 17:00] LABS: Glucose - Point of Care 109 mg/dl (70-99)
[2024-04-03] MEDS: STERILE WATER FOR INJECTION 10 ML IV ×2 (17:21→23:01)
[2024-04-03] MEDS: MERREM 500 MG IV ×2 (17:21→23:01)
[2024-04-03] MEDS: GEODON 120 MG PO (17:22)
[2024-04-03] MEDS: LOVENOX 40 MG SC (17:22)
[2024-04-03] MEDS: LOPRESSOR 5 MG IV (20:00)
[2024-04-03 21:34] LABS: Glucose - Point of Care 128 mg/dl (70-99)
[2024-04-03] MEDS: CRESTOR 10 MG PO (23:00)
[2024-04-03] MEDS: DESYREL 100 MG PO (23:01)
[2024-04-04 03:20] VITALS: BP 122/75
[2024-04-04] MEDS: TYLENOL 650 MG PO ×2 (03:40→08:59)
[2024-04-04] MEDS: FLUSH (NSS) 1 FLUSH IV ×2 (03:48→03:50)
[2024-04-04] MEDS: MERREM 500 MG IV ×4 (03:49→21:04)
[2024-04-04] MEDS: STERILE WATER FOR INJECTION 10 ML IV ×4 (03:49→21:05)
[2024-04-04] MEDS: ROXICODONE 5 MG PO ×2 (04:54→12:25)
[2024-04-04 07:00] VITALS: BP 96/58
[2024-04-04 07:11] LABS: Hematocrit 33.6 % (37.0-47.0); Hemoglobin 11.2 g/dL (12.0-16.0); Mean Corp Hgb Conc. 33.3 g/dL (33.0-37.0); Mean Corpuscular Hgb 27.3 pg (27.0-31.0); Mean Corpuscular Volume 81.8 fL (81.0-99.0); Platelet Count 178 10^3/uL (130-400); Red Blood Cell Count 4.11 10^6/uL (4.20-5.40); Red Cell Dist. Width 15.1 % (11.5-14.5); White Blood Cell Count 7.3 10^3/uL (4.8-10.8)
[2024-04-04 07:13] LABS: Blood Urea Nitrogen 8 mg/dl (7-17); Calcium 9.5 mg/dl (8.4-10.2); Carbon Dioxide 28 mmol/L (22-30); Chloride 102 mmol/L (98-107); Estimated Creatinine Clearance 102 ml/min; Glucose 97 mg/dl (70-99); Potassium 3.5 mmol/L (3.5-5.1); Sodium 137 mmol/L (135-145); eGFR > 60.00
[2024-04-04 08:11] LABS: % Basophils 0.3 % (0-2); % Eosinophils 0.4 % (0-6); % Immature Granulocytes 0.7 % (0-0.5); % Lymphocytes 9.7 % (20.5-51.1); % Monocytes 10.1 % (1.7-9.3); % Neutrophils 78.8 % (42.2-75.2); Absolute Immature Granulocytes 0.1 10^3/uL (0-0.05); Absolute Lymphocytes 0.7 10^3/uL (1.2-3.4); Absolute Monocytes 0.7 10^3/uL (0.1-0.6); Absolute Neutrophils 5.8 10^3/uL (1.4-6.5); Nucleated Red Blood Cells % 0 %
[2024-04-04 08:26] LABS: Glucose - Point of Care 98 mg/dl (70-99)
[2024-04-04] MEDS: NOVOLOG FLEXPEN-LOW RESISTANCE SC ×2 (08:50→16:57)
[2024-04-04] MEDS: KLONOPIN 0.5 MG PO ×3 (08:51→17:02)
[2024-04-04] MEDS: LOPRESSOR 25 MG PO (08:51)
[2024-04-04] MEDS: EFFEXOR XR 37.5 MG PO (08:51)
[2024-04-04] MEDS: VITAMIN D3 (cholecalciferol) 50 MCG PO (08:51)
[2024-04-04] MEDS: NEURONTIN 200 MG PO (08:52)
[2024-04-04] MEDS: ASPIRIN 325 MG PO (08:52)
[2024-04-04 11:00] VITALS: BP 91/47
[2024-04-04 11:18] VITALS: BP 91/47; PULSE 74; O2SAT 92
--- NOTE | 2024-04-04 11:29 | W.PN.ID1 ---
Date of Service
Date of Service: April 04, 2024
Today's Communication
Continue abx.
Assessment / Plan
Klebsiella bacteremia
Suspected complicated urinary tract infection
Leukocytosis
Lactic acidosis
Elevated procalcitonin
Hx Breast cancer
NIDDM
Schizoaffective disorder
Recommendations:
Continue meropenem 500 mg IV every 6 hours.
Monitor white count temperature curve.
Await further culture data to guide antimicrobial selection and potential de-escalation.
Await renal ultrasound.
����������������������������������������������������������
Chief Complaint
-: UTI and Bacteremia
Subjective / Review of Systems
Review of Systems: No Fever and No Chills
Vital Signs / Physical Exam
Vital Signs
Vital Signs
Temp Pulse Resp BP Pulse Ox
98.5 F 76 14 91/47 92
04/04/24 11:00 04/04/24 11:00 04/04/24 11:00 04/04/24 11:00 04/04/24 11:00
Physical Exam
Constitutional: No Acute Distress, Comfortable, Chronically Ill and Non-toxic
Eyes: Sclera Anicteric
Cardiovascular: S1/S2; Negative S3/S4
Pulmonary: Non Labored
Gastrointestinal: Soft, Non Distended and Normal Bowel Sounds
Genito-Urinary: Negative Suprapubic Tenderness or CVA Tenderness
Extremities: Negative Edema or Cyanosis
Neurological: Awake and Alert
Psychological: Calm
Objective Data
Lab Data
Lab Results
04/04/24 06:26
04/04/24 06:26
PT 12.8 Sec (11.4-14.6) 04/02/24 21:10
INR 0.98 04/02/24 21:10
Estimated Creat Clear 102 ml/min 04/04/24 06:26
Lactic Acid Cancelled 04/03/24 18:00
Total Bilirubin 0.4 mg/dl (0.2-1.3) 04/02/24 21:53
AST 22 U/L (14-36) 04/02/24 21:53
ALT 15 U/L (0-35) 04/02/24 21:53
Alkaline Phosphatase 108 U/L (38-126) 04/02/24 21:53
Most recent labs reviewed.
Micro Results:
04/02/24 21:10 Blood Culture - Preliminary
Blood/Venous Klebsiella pneumoniae
Gram Stain - Preliminary
04/02/24 21:49 Urine Culture - Preliminary
Urine Gram negative bacilli
04/02/24 21:53 Blood Culture - Preliminary
Blood/Venous No Growth in 24 hours- Final report to follow
03/30/24 15:08 C. difficile GDH Antigen & Toxins - Final
Feces/Stool C. difficile antigen positive, toxin negative.
Clostridium difficile present, but toxin not detected.
Patient may be a carrier, colonized with nontoxinogenic
strain or the level of toxin in sample is below detection
limits. This information should be used in conjunction with
the patient's clinical history.
03/21/24 18:47 MRSA Screen - Final
Nose No Methicillin Resistant Staphylococcus aureus isolated.
[2024-04-04 11:52] LABS: Glucose - Point of Care 256 mg/dl (70-99)
[2024-04-04] MEDS: NOVOLOG FLEXPEN-LOW RESISTANCE 2 UNITS SC (12:24)
[2024-04-04 15:00] VITALS: BP 98/61
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
[2024-04-04 16:42] LABS: Glucose - Point of Care 107 mg/dl (70-99)
--- NOTE | 2024-04-04 17:00 | CM ---
Received notification from fax that the Office on Aging has deemed patient appropriate for NH care. Placed a call to Gisselle in admissions at [facility] as well as [facility]. She stated that no beds can be offered. Checked
[facility] and [facility], [facility], [facility], [facility] and [facility] all denied admission.
Will call Antoinette, patient's poa.
Plan: Case management will continue to follow and assist with discharge planning. NH transfer when one renders acceptance.
[2024-04-04] MEDS: GEODON 120 MG PO (17:01)
[2024-04-04] MEDS: LOVENOX 40 MG SC (17:01)
[2024-04-04 19:00] VITALS: BP 102/54
[2024-04-04] MEDS: LR IV ×2 (19:46)
[2024-04-04] MEDS: CRESTOR 10 MG PO (20:35)
[2024-04-04] MEDS: DESYREL 100 MG PO (20:36)
[2024-04-04 21:26] LABS: Glucose - Point of Care 114 mg/dl (70-99)
--- NOTE | 2024-04-04 23:03 | PTCARENOTE ---
very drowsy but arousable- [id number]% on room air- s 2 liters placed- 97%
[2024-04-05] VITALS (7 sets, daily range): BP systolic 102–119; BP diastolic 56–74; PULSE 74
[2024-04-05] MEDS: TYLENOL 650 MG PO ×2 (02:37→20:28)
[2024-04-05] MEDS: MERREM 500 MG IV ×2 (03:02→09:09)
[2024-04-05] MEDS: FLUSH (NSS) 4 FLUSH IV (03:02)
[2024-04-05] MEDS: STERILE WATER FOR INJECTION 10 ML IV ×2 (03:02→09:09)
--- NOTE | 2024-04-05 06:05 | PTCARENOTE ---
continues with low grade fevers- tylenol given- sinus bp wnl
[2024-04-05 07:43] LABS: Glucose - Point of Care 98 mg/dl (70-99)
[2024-04-05] MEDS: NOVOLOG FLEXPEN-LOW RESISTANCE SC ×3 (07:43→16:53)
[2024-04-05] MEDS: EFFEXOR XR 37.5 MG PO (07:44)
[2024-04-05] MEDS: ASPIRIN 325 MG PO (07:44)
[2024-04-05] MEDS: KLONOPIN 0.5 MG PO ×3 (07:44→16:58)
[2024-04-05] MEDS: VITAMIN D3 (cholecalciferol) 50 MCG PO (07:44)
[2024-04-05] MEDS: NEURONTIN 200 MG PO (07:44)
[2024-04-05] MEDS: LOPRESSOR 25 MG PO (07:44)
--- NOTE | 2024-04-05 11:19 | W.PN.UPDATE ---
Update Note
Progress Note Update
Patient seen, chart reviewed, discussed with RN. Ms. Carlson is sleepy today, feels a little weak. Being treated for UTI now. Guardianship has been awarded. Efforts to find SNF placement persist. Denies any SI/SB, no signs of psychosis or aparna
noted.
Impression/Recommendations: Schizoaffective disorder; Borderline personality disorder - Continue with current psychotropic medication regimen. Stable on current regimen.
[2024-04-05 12:05] LABS: Glucose - Point of Care 120 mg/dl (70-99)
--- NOTE | 2024-04-05 12:53 | CM ---
Addendum entered by Suzanna Kenney [facility] 04/05/24 17:01:
Met with patient at her request. Patient stated that she wants to go back to her house. Patient was advised that CM can't make that determination and emotional support provided. Will request guardian speak with patient.
Addendum entered by Suzanna Kenney [facility] 04/05/24 16:19:
Received message from Mattie at [facility] that they can take patient and should have a bed tomorrow.
Addendum entered by Suzanna Kenney [facility] 04/05/24 14:15:
Mattie from admissions at [facility] coming in to see patient.
Addendum entered by Suzanna Kenney [facility] 04/05/24 13:24:
Spoke with Antoinette, patient's guardian to update that [facility] may potentially have a bed. Will keep her updated.
Original Note:
Placed a call to [facility] and [facility] admissions, however had to leave a voice mail message. Requested return call with updated availability regarding acceptance.
Received phone call back from Mattie in admissions at [facility] who stated that their facility has bed availability. She requested that the level 2 paperwork be faxed over as well for their [employer] to review. Will await determination.
Plan: Case management will continue to follow and assist with discharge planning. NH when bed is found.
--- NOTE | 2024-04-05 14:26 | W.PN.ID1 ---
Date of Service
Date of Service: April 05, 2024
Today's Communication
Continue antibiotics. See below�
Assessment / Plan
Klebsiella bacteremia
Complicated urinary tract infection
Leukocytosis
Lactic acidosis
Elevated procalcitonin
Hx Breast cancer
NIDDM
Schizoaffective disorder
Recommendations:
Renal ultrasound reviewed; essentially unremarkable.
Sensitivities reviewed.
Narrow to cefazolin.
Monitor white count temperature curve.
����������������������������������������������������������
Chief Complaint
-: UTI and Bacteremia
Subjective / Review of Systems
Review of Systems: No Fever, No Chills, No Headache, No Chest Pain and No Dysuria
Vital Signs / Physical Exam
Vital Signs
Vital Signs
Temp Pulse Resp BP Pulse Ox
98.5 F 65 18 107/56 97
04/05/24 11:00 04/05/24 11:00 04/05/24 11:00 04/05/24 11:00 04/05/24 11:00
Physical Exam
Constitutional: No Acute Distress, Comfortable, Chronically Ill and Non-toxic
Eyes: Sclera Anicteric
Cardiovascular: S1/S2; Negative S3/S4
Pulmonary: Non Labored
Gastrointestinal: Soft, Non Tender and Non Distended
Neurological: Awake and Alert
Psychological: Calm
Objective Data
Lab Data
Lab Results
04/04/24 06:26
04/04/24 06:26
PT 12.8 Sec (11.4-14.6) 04/02/24 21:10
INR 0.98 04/02/24 21:10
Estimated Creat Clear 102 ml/min 04/04/24 06:26
Lactic Acid Cancelled 04/03/24 18:00
Total Bilirubin 0.4 mg/dl (0.2-1.3) 04/02/24 21:53
AST 22 U/L (14-36) 04/02/24 21:53
ALT 15 U/L (0-35) 04/02/24 21:53
Alkaline Phosphatase 108 U/L (38-126) 04/02/24 21:53
Most recent labs reviewed.
Micro Results:
04/02/24 21:10 Blood Culture - Preliminary
Blood/Venous Klebsiella pneumoniae
Gram Stain - Preliminary
04/02/24 21:49 Urine Culture - Final
Urine Klebsiella pneumoniae
04/02/24 21:53 Blood Culture - Preliminary
Blood/Venous No Growth in 48 hours- Final report to follow
03/30/24 15:08 C. difficile GDH Antigen & Toxins - Final
Feces/Stool C. difficile antigen positive, toxin negative.
Clostridium difficile present, but toxin not detected.
Patient may be a carrier, colonized with nontoxinogenic
strain or the level of toxin in sample is below detection
limits. This information should be used in conjunction with
the patient's clinical history.
03/21/24 18:47 MRSA Screen - Final
Nose No Methicillin Resistant Staphylococcus aureus isolated.
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
[2024-04-05 16:50] LABS: Glucose - Point of Care 123 mg/dl (70-99)
[2024-04-05] MEDS: ANCEF 10 IV (16:54)
[2024-04-05] MEDS: GEODON 120 MG PO (16:57)
[2024-04-05] MEDS: LOVENOX 40 MG SC (16:58)
[2024-04-05] MEDS: DESYREL 100 MG PO (20:28)
[2024-04-05] MEDS: CRESTOR 10 MG PO (20:29)
[2024-04-05 21:28] LABS: Glucose - Point of Care 140 mg/dl (70-99)
[2024-04-06] MEDS: ANCEF 10 IV ×3 (00:33→17:15)
[2024-04-06 03:00] VITALS: BP 114/65
[2024-04-06] MEDS: TYLENOL 650 MG PO (04:38)
--- NOTE | 2024-04-06 05:35 | PTCARENOTE ---
At 1930, pt became agitated with PCT. Pt upset of 'confidential' status and not being able to use the phone. Pt threw phone towards PCT/wall. Pt found standing outside of room, in hallway and continues to be upset that she was not able to call.
Explained to patient that she would be able to speak with guardian regarding concerns. Pt also offered crackers and turkey sandwich, and redirecting pt was successful. Pt remained calm throughout the night. Pt apologized to staff for behavior.
[2024-04-06 07:00] VITALS: BP 121/72
[2024-04-06 08:07] LABS: Glucose - Point of Care 241 mg/dl (70-99)
[2024-04-06] MEDS: VITAMIN D3 (cholecalciferol) 50 MCG PO (09:12)
[2024-04-06] MEDS: KLONOPIN 0.5 MG PO ×3 (09:12→17:16)
[2024-04-06] MEDS: EFFEXOR XR 37.5 MG PO (09:12)
[2024-04-06] MEDS: NEURONTIN 200 MG PO (09:12)
[2024-04-06] MEDS: LOPRESSOR 25 MG PO (09:12)
[2024-04-06] MEDS: ASPIRIN 325 MG PO (09:12)
[2024-04-06] MEDS: NOVOLOG FLEXPEN-LOW RESISTANCE 2 UNITS SC (09:14)
--- NOTE | 2024-04-06 10:57 | W.PN.ID1 ---
Date of Service
Date of Service: April 06, 2024
Today's Communication
Continue antibiotics.
Assessment / Plan
Klebsiella bacteremia
Complicated urinary tract infection secondary to Klebsiella pneumoniae
Leukocytosis
- improved
Lactic acidosis
Elevated procalcitonin
Hx Breast cancer
NIDDM
Schizoaffective disorder
Recommendations:
Renal ultrasound reviewed; essentially unremarkable.
Continue with cefazolin. At discharge, can transition to oral cephalexin to complete a 10-day course in total.
Monitor white count temperature curve.
����������������������������������������������������������
Chief Complaint
-: UTI and Bacteremia
Subjective / Review of Systems
Review of Systems: No Fever, No Chills and No Dysuria
Vital Signs / Physical Exam
Vital Signs
Vital Signs
Temp Pulse Resp BP Pulse Ox
97.8 F 74 17 121/72 94
04/06/24 07:00 04/06/24 09:12 04/06/24 07:00 04/06/24 09:12 04/06/24 07:00
Physical Exam
Constitutional: No Acute Distress, Comfortable, Chronically Ill and Non-toxic
Eyes: No Conjunctival Hemorrhage and Sclera Anicteric
Cardiovascular: S1/S2; Negative S3/S4
Pulmonary: Non Labored
Gastrointestinal: Soft, Non Tender and Non Distended
Genito-Urinary: Negative CVA Tenderness
Extremities: Edema; Negative Erythema
Neurological: Awake and Alert
Psychological: Calm
Objective Data
Lab Data
Lab Results
04/04/24 06:26
04/04/24 06:26
PT 12.8 Sec (11.4-14.6) 04/02/24 21:10
INR 0.98 04/02/24 21:10
Estimated Creat Clear 102 ml/min 04/04/24 06:26
Lactic Acid Cancelled 04/03/24 18:00
Total Bilirubin 0.4 mg/dl (0.2-1.3) 04/02/24 21:53
AST 22 U/L (14-36) 04/02/24 21:53
ALT 15 U/L (0-35) 04/02/24 21:53
Alkaline Phosphatase 108 U/L (38-126) 04/02/24 21:53
Most recent labs reviewed.
Micro Results:
04/02/24 21:53 Blood Culture - Preliminary
Blood/Venous No Growth in 72 hours- Final report to follow
04/02/24 21:10 Blood Culture - Preliminary
Blood/Venous Klebsiella pneumoniae
Gram Stain - Preliminary
04/02/24 21:49 Urine Culture - Final
Urine Klebsiella pneumoniae
03/30/24 15:08 C. difficile GDH Antigen & Toxins - Final
Feces/Stool C. difficile antigen positive, toxin negative.
Clostridium difficile present, but toxin not detected.
Patient may be a carrier, colonized with nontoxinogenic
strain or the level of toxin in sample is below detection
limits. This information should be used in conjunction with
the patient's clinical history.
03/21/24 18:47 MRSA Screen - Final
Nose No Methicillin Resistant Staphylococcus aureus isolated.
[2024-04-06 11:00] VITALS: BP 130/73
--- NOTE | 2024-04-06 11:24 | W.PN.UPDATE ---
Update Note
Progress Note Update
patient seen chart reviewed. discussed w nursing and with cm. the patient is in reasonably good spirits today although last evening admits she threw her phone. she was upset that the confidentiality warning was still on her chart. she is dismayed
that 'no one ' is calling her. she would like to be able to speak with [facility] staff....out pt cm etc. asked cm to please remove warning at this point. patient also not sure she feels comfortable with guardian. she expressed some unhappiness about
their visit. this was discussed w cm as well who tells me she was under the impression that guardian will accept no input from client in making decisions. i do not know guardian but it is my impression that mrs lima should have some input although
clearly the guardian is there to safeguard any decisions which could harm mrs lima. there is at this point no need for changes in psych meds. encouraged mrs lima to communicate with us about what is upsetting her and NOT to deal with it by
throwing objects. she agreed to talk before acting out . will follow
[2024-04-06 11:38] LABS: Glucose - Point of Care 102 mg/dl (70-99)
[2024-04-06] MEDS: NOVOLOG FLEXPEN-LOW RESISTANCE SC ×2 (11:43→17:22)
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
--- NOTE | 2024-04-06 14:11 | W.PN.UPDATE ---
Update Note
Progress Note Update
patient seen chart reviewed spoke with nursing, dr cleary and cm this afternoon after being notified that patient made homicidal threats towards her newly appointed court guardian. mrs lima was unhappy about being sent to [facility]. said that
she had heard it was not a very good place and she thought her guardian had chosen it bc it was less expensive than other better nursing homes. reassured her this was NOT the case. the honest truth is that she was not accepted anywhere else likely
due to her psych hx. i did tell her that this does not mean she will never be accepted anywhere else. if [facility] goes well for a while she has the $ to be transferred and perhaps her cm could then assist her. she was very pleasant when i saw
her and said she would not try to harm anyone or herself. ordered extra klonopin dose before she leaves today.
--- NOTE | 2024-04-06 14:13 | CM ---
Reviewed chart, spoke with attending who stated that patient is medically stable. Placed a call to Mattie in admissions at [facility] who confirmed bed availability for patient today. Attending made aware. Psych in to see patient as she was
making homicidal threats towards guardian. Patient cleared by psych. Placed call to patient's therapist. Earline to make aware and update. Spoke with Guardian to make aware (Antoinette Reeves), reviewed [facility] and that patient will be transferring today. She
is agreeable. She requested that the discharge summery be faxed to her as well as med list. Made [facility] aware.
IMM on chart.
#For [phone] fax [phone] fax for guardian [phone]
Plan: Case management will continue to follow and assist with discharge planning. [facility] today.
[2024-04-06 14:45] VITALS: BP 137/76; PULSE 74
[2024-04-06 15:00] VITALS: BP 139/84
[2024-04-06 17:03] LABS: Glucose - Point of Care 171 mg/dl (70-99)
[2024-04-06] MEDS: LOVENOX 40 MG SC (17:16)
[2024-04-06] MEDS: GEODON 120 MG PO (17:16)
== END 2024-04-06 18:18 | DRG 640 ==
LOC: 3 WEST ACU 12:09
PROVIDERS: Clinical Nurse Specialist Family Health; Hospitalist; Nurse Practitioner Family; ADMITTING PHYSICIAN Internal Medicine; CONSULT PHYSICIAN Internal Medicine Infectious Disease; CONSULT PHYSICIAN Psychiatry & Neurology Psychiatry; EMERGENCY PHYSICIAN Emergency Medicine
DX: E87.1 Hypo-osmolality and hyponatremia (principal); A41.59 Other Gram-negative sepsis; G92.8 Other toxic encephalopathy; N39.0 Urinary tract infection, site not specified; R45.851 Suicidal ideations; A04.72 Enterocolitis due to Clostridium difficile, not specified as recurrent; T74.11XA Adult physical abuse, confirmed, initial encounter; F13.239 Sedative, hypnotic or anxiolytic dependence with withdrawal, unspecified; Y07.44 Child, perpetrator of maltreatment and neglect; F25.9 Schizoaffective disorder, unspecified; E11.9 Type 2 diabetes mellitus without complications; E66.01 Morbid (severe) obesity due to excess calories; Z68.32 Body mass index [BMI] 32.0-32.9, adult; E87.20 Acidosis, unspecified; R62.7 Adult failure to thrive; B96.1 Klebsiella pneumoniae [K. pneumoniae] as the cause of diseases classified elsewhere; E83.42 Hypomagnesemia; E87.6 Hypokalemia; I25.10 Atherosclerotic heart disease of native coronary artery without angina pectoris; Z95.5 Presence of coronary angioplasty implant and graft; E78.5 Hyperlipidemia, unspecified; E86.1 Hypovolemia; F60.3 Borderline personality disorder; G89.4 Chronic pain syndrome; Z63.8 Other specified problems related to primary support group; Z79.82 Long term (current) use of aspirin; Z79.84 Long term (current) use of oral hypoglycemic drugs; Z79.899 Other long term (current) drug therapy; Z87.820 Personal history of traumatic brain injury; Z87.891 Personal history of nicotine dependence; Z86.79 Personal history of other diseases of the circulatory system; Z87.81 Personal history of (healed) traumatic fracture; Z87.19 Personal history of other diseases of the digestive system; Z85.3 Personal history of malignant neoplasm of breast; Z92.21 Personal history of antineoplastic chemotherapy; Z92.3 Personal history of irradiation
CPT/HCPCS: 70110; 71045; 76770; 80048; 80053; 80061; 80143; 80179; 80306; 80307; 81003; 81015; 82607; 82728; 82746; 82962; 83036; 83540; 83550; 83605; 83690; 83735; 83930; 83935; 84145; 84300; 84443; 84484; 85025; 85610; 87040; 87070; 87077; 87086; 87149; 87186; 87205; 87324; 87449; 87811; 93005; 96361; 96374; 97110; 97116; 97163; 97167; 97530; 97535; 99285; 99406